=== PATIENT | female | born 1960 | race Caucasian/White ===

== ENCOUNTER → 2017-01-09 | Outpatient (CLI) | payer BC | END | disposition home or self-care (01) | LOC: LAB.O 09:39 | PROVIDERS: ATTEND Nurse Practitioner Family | DX: I10 Essential (primary) hypertension (principal); E11.9 Type 2 diabetes mellitus without complications ==

== ENCOUNTER 2017-02-23 22:14 | Emergency (ER) | payer BC ==
[2017-02-23 22:25] VITALS: TEMP 98.9; O2SAT 98
[2017-02-23] MEDS ORDERED: HYDROcodone 5MG/APAP 325MG 1 EA TAB PO ONE (22:33)
[2017-02-23] MEDS ORDERED: HYDROCOD/APAP 5/325 (ER DISP) #3 TAB PO ONE (22:33)
[2017-02-23] MEDS ORDERED: diazePAM 2 MG TAB PO ONE (22:33)
[2017-02-23] MEDS ORDERED: SODIUM CHLORIDE 0.9% 1000ML 1,000 ML IVS ONE (22:33)
[2017-02-23] MEDS ORDERED: PROMETHAZINE HCL INJ 25 MG in SODIUM CHLORIDE 0.9% 50ML 50 ML IVPB ONE (22:33)
[2017-02-23] MEDS ORDERED: SODIUM CHLORIDE 0.9% 50ML 50 ML ONE (22:50)
[2017-02-23] MEDS ORDERED: PROMETHAZINE HCL INJ 25 MG/ML VIAL ONE (22:50)
[2017-02-23] MEDS ORDERED: POTASSIUM CHLORIDE ELIXIR 20 MEQ/15 ML UD PO ONE (22:54)
--- NOTE | 2017-02-23 23:29 | CT ---
EXAM: Head CLINICAL INDICATION: 57-year-old female with acute headache. On blood thinners. COMPARISON: None. TECHNIQUE: CT brain without contrast. This exam was performed according to our departmental dose optimization program which includes use of automated exposure control, adjustment of the mA and/or kV according to patient size and/or use of iterative reconstruction technique. FINDINGS: The ventricles, sulci, and cisterns are within normal limits. The kendall-white matter differentiation is preserved. There is no mass effect, midline shift, intra- or extra-axial fluid collection/acute hemorrhage. The osseous structures are unremarkable. The paranasal sinuses and mastoid air cells are clear. IMPRESSION: No acute intracranial abnormalities. Electronically signed by: Carlota Varner MD 02/23/2017 11:27 PM CDT Workstation: [id number]
--- NOTE | 2017-02-23 23:37 | ED.PDOC ---
History of Present Illness - General Chief Complaint: GI Problem Stated Complaint: headache, vomiting Time Seen by Provider: 02/23/17 22:26 Source: patient Exam Limitations: no limitations - History of Present Illness Initial Comments: The patient is a 57-year-old female presenting to the emergency room secondary to a significant headache. The patient has had lancinating pains on both sides of her head intermittently for the last couple of days. Today the pains were more prolonged. The headache did not want to go away. She has become a little nauseated. Her blood sugars have also been a little bit elevated. No focal neurological changes. 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 She does also take a water pill. She did have a history of migraines but her last migraine was approximately 9 years ago. Timing/Duration: unsure Severity: moderate Improving Factors: nothing Worsening Factors: nothing Associated Symptoms: headaches Allergies/Adverse Reactions: Allergies Metformin Allergy (Verified 02/23/17 22:25) Home Medications: Ambulatory Orders Acyclovir [Zovirax] 400 mg PO 02/23/17 Aspirin [(None)] 325 mg PO QD 02/23/17 Atenolol [Tenormin] 50 mg PO 02/23/17 Cetirizine HCl [Zyrtec Allergy] 10 mg PO 02/23/17 Citalopram Hydrobromide 02/23/17 Clopidogrel Bisulfate [Clopidogrel] 300 mg PO 02/23/17 Gabapentin [Neurontin] 300 mg PO 02/23/17 Glipizide-Metformin HCl [Glipizide/Metformin HCl 5-500 mg] 1 tab PO 02/23/17 Insulin Glargine [Lantus Solostar] 100 unit SC 02/23/17 Isosorbide Mononitrate [Isosorbide Mononitrate ER] 30 mg PO 02/23/17 Losartan Potassium & Hydrochlo [Losartan Potassium/Hydroc 50-12.5 mg] 1 tab PO 02/23/17 Novolog 02/23/17 Rosuvastatin Calcium [Crestor] 20 mg PO 02/23/17 Review of Systems - Review of Systems Constitutional: States: malaise EENTM: States: no symptoms reported Respiratory: States: no symptoms reported Cardiology: States: no symptoms reported Gastrointestinal/Abdominal: States: no symptoms reported Genitourinary: States: no symptoms reported Musculoskeletal: States: no symptoms reported Skin: States: no symptoms reported Neurological: States: headache Endocrine: States: no symptoms reported Hematologic/Lymphatic: States: no symptoms reported All other Systems: No Change from Baseline Past Medical History (General) - Vaccination History Immunizations Up to Date: Yes - Social History Hx Tobacco Use: No - Activities of Daily Living Hospice Agency (if applicable):: None - Female History Patient is a Female of Child Bearing Age (10 -59 yrs old): Yes Physical Exam - Physical Exam General Appearance: Alert Eye Exam: bilateral normal Ears, Nose, Throat: hearing grossly normal, normal ENT inspection, normal pharynx Neck: non-tender, full range of motion, supple, normal inspection Respiratory: chest non-tender, lungs clear, normal breath sounds, no respiratory distress, no accessory muscle use Cardiovascular/Chest: normal peripheral pulses, regular rate, rhythm, no edema Peripheral Pulses: radial,right: 2+, radial,left: 2+, dorsalis pedis,right: 2+, dorsalis pedis,left: 2+ Gastrointestinal/Abdominal: non tender, soft Rectal Exam: deferred Extremity: normal range of motion, non-tender, normal inspection, no pedal edema , normal capillary refill 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 CT scan shows no acute pathology. The patient has received medications here which have helped her symptomatically. Source of the atypical headache is not entirely certain. There may be some component of occipital neuralgia. She was mildly dehydrated and has mildly low potassium level which also may contribute. No focal neurological deficits. The patient will be allowed to go home. She needs to follow up with her primary care doctor early next week. She also needs to control her blood sugars a little better. ER warnings were given for any significant worsening. - Results/Orders Results/Orders: Laboratory Tests 02/23/17 02/23/17 02/23/17 22:32 22:32 22:32 WBC 8.0 RBC 4.19 L Hgb 12.4 Hct 36.5 MCV 87.0 MCH 29.5 MCHC 33.9 RDW 14.5 Plt Count 284 MPV 8.5 Absolute Neuts (auto) 4.90 Absolute Lymphs (auto) 2.40 Absolute Monos (auto) 0.60 Absolute Eos (auto) 0.10 Absolute Basos (auto) 0.00 Neutrophils % 61.0 Lymphocytes % 30.2 Monocytes % 7.0 Eosinophils % 1.2 Basophils % 0.6 PT 10.0 INR 0.880 PTT (SP) 26.2 Sodium 139 Potassium 3.5 L Chloride 102 Carbon Dioxide 26 Anion Gap 14.5 BUN 27 H Creatinine 0.88 BUN/Creatinine Ratio 30.7 H Random Glucose 200 H Serum Osmolality 288.3 Calcium 9.2 Magnesium 1.8 Total Bilirubin 0.4 AST 23 ALT 26 Alkaline Phosphatase 69 Serum Total Protein 6.7 Albumin 3.9 Globulin 2.8 Albumin/Globulin Ratio 1.4 CT scan of the head shows no definitive acute pathology. Departure - Departure Clinical Impression: Headache Qualifiers: Headache type: unspecified Headache chronicity pattern: acute headache Intractability: not intractable Qualified Code(s): R51 - Headache Disposition: Discharge to Home or Self Care Condition: Fair Departure Forms: ED Discharge - Pt. Copy, Patient Portal Self Enrollment Instructions: DI for Headache Diet: diabetic diet Activity: increase activity as tolerated Home Medications: Ambulatory Orders Acyclovir [Zovirax] 400 mg PO 02/23/17 Aspirin [(None)] 325 mg PO QD 02/23/17 Atenolol [Tenormin] 50 mg PO 02/23/17 Cetirizine HCl [Zyrtec Allergy] 10 mg PO 02/23/17 Citalopram Hydrobromide 02/23/17 Clopidogrel Bisulfate [Clopidogrel] 300 mg PO 02/23/17 Gabapentin [Neurontin] 300 mg PO 02/23/17 Glipizide-Metformin HCl [Glipizide/Metformin HCl 5-500 mg] 1 tab PO 02/23/17 Insulin Glargine [Lantus Solostar] 100 unit SC 02/23/17 Isosorbide Mononitrate [Isosorbide Mononitrate ER] 30 mg PO 02/23/17 Losartan Potassium & Hydrochlo [Losartan Potassium/Hydroc 50-12.5 mg] 1 tab PO 02/23/17 Novolog 02/23/17 Rosuvastatin Calcium [Crestor] 20 mg PO 02/23/17 Additional Instructions: the patient is a 57-year-old female presenting to the emergency room secondary to severe headache. CT scan shows no acute pathology. The patient has received medications here which have helped her symptomatically. Source of the atypical headache is not entirely certain. There may be some component of occipital neuralgia. She was mildly dehydrated and has mildly low potassium level which also may contribute. No focal neurological deficits. The patient will be allowed to go home. She needs to follow up with her primary care doctor early next week. She also needs to control her blood sugars a little better. ER warnings were given for any significant worsening.
[2017-02-24 00:32] VITALS: BP 140/87
== END 2017-02-24 00:30 | disposition home or self-care (01) ==
LOC: ER 22:14
DX: R51 Headache (principal); Z88.8 Allergy status to other drugs, medicaments and biological substances; Z79.82 Long term (current) use of aspirin; Z79.899 Other long term (current) drug therapy; Z79.4 Long term (current) use of insulin

== ENCOUNTER 2017-05-09 05:44 | Day surgery (SDC) | payer BC ==
[2017-05-09] MEDS ORDERED: LACTATED RINGERS 1,000 ML ONE (05:54)
[2017-05-09] MEDS ORDERED: PROPOFOL 200 MG/20 ML VIAL IV ONE (09:00)
[2017-05-09] MEDS ORDERED: GLYCOPYRROLATE 0.2 MG/ML VIAL ONE (09:00)
[2017-05-09 09:23] VITALS: O2SAT 98
--- NOTE | 2017-05-09 10:04 | OP ---
DATE OF PROCEDURE: 05/09/17 PREOPERATIVE DIAGNOSIS: 1. Positive Cologuard. 2. The patient is a [facility] patient. POSTOPERATIVE DIAGNOSIS: 1. Colonic polyps. 2. Diverticulosis. PROCEDURE: 1. Colonoscopy plus polypectomy. SURGEON: Angel Pelaez MD. COMPLICATIONS: None apparent. BLOOD LOSS: None. MEDICATIONS: Monitored anesthesia care. DESCRIPTION OF PROCEDURE: Informed consent was obtained prior to sedation. The preprocedure cardiopulmonary assessment was satisfactory. The patient was placed in the left lateral decubitus position and was sedated. A digital rectal exam was unremarkable. The tip of the Olympus colonoscope was inserted in the rectum and guided over to the cecum. The cecum was identified by locating the ileocecal valve and appendiceal orifice. Photographs of those two structures were obtained. Prep was good. The mucosa of the cecum, ascending colon, hepatic flexure, transverse colon, splenic flexure, descending colon and sigmoid colon was closely examined. Direct and retroflexed views of the rectum were obtained. The patient had multiple colonic polyps. There were 3 sessile polyps in the transverse colon, all 6 mm or less in size. All 3 were removed with a hot snare and recovered. There were 2 sigmoid polyps, each less than 5 mm in size and removed with a hot snare and recovered. Finally, there were 2 rectal polyps, one was about 5 mm in size and the second was about 2 mm in size. The larger one was removed with a hot snare and the smaller one was removed with a cold snare. Both of them were recovered. The patient had multiple sigmoid diverticula. Otherwise, the colonoscopy was unremarkable. RECOMMENDATIONS: 1. Await polyp pathology. 2. Resume her Plavix in about 3 days. 3. Call our office in one week for polyp results. #[id number] cc: Ray BRAND
[2017-05-09 10:11] VITALS: BP 134/70; TEMP 97.6
== END 2017-05-09 09:45 | disposition home or self-care (01) ==
LOC: AMB 05:44
PROVIDERS: ATTEND Internal Medicine Gastroenterology
DX: R19.5 Other fecal abnormalities (principal); D12.3 Benign neoplasm of transverse colon; D12.5 Benign neoplasm of sigmoid colon; K62.1 Rectal polyp; K57.30 Diverticulosis of large intestine without perforation or abscess without bleeding; I25.10 Atherosclerotic heart disease of native coronary artery without angina pectoris; F32.9 Major depressive disorder, single episode, unspecified; E11.9 Type 2 diabetes mellitus without complications; E78.5 Hyperlipidemia, unspecified; I25.2 Old myocardial infarction; K21.9 Gastro-esophageal reflux disease without esophagitis; Z95.5 Presence of coronary angioplasty implant and graft; Z85.43 Personal history of malignant neoplasm of ovary; Z87.891 Personal history of nicotine dependence; Z88.8 Allergy status to other drugs, medicaments and biological substances; Z79.82 Long term (current) use of aspirin; Z79.4 Long term (current) use of insulin; Z79.02 Long term (current) use of antithrombotics/antiplatelets; Z79.899 Other long term (current) drug therapy
CPT/HCPCS: 00810; 45385; 82948; J7120

== ENCOUNTER → 2018-01-30 | Outpatient (CLI) | payer BC ==
--- NOTE | 2018-01-31 16:24 | MAM ---
EXAM DESCRIPTION: 3D Screening BILATERAL : Digital Mammography. CLINICAL HISTORY: 58 years Female SCREENING . No complaints. No family history of breast cancer. Remote family history of ovarian cancer. Childbirth. Postmenopausal. HRT 5 or more years ago.. COMPARISON: Baseline study at this facility.. No prior reports available. TECHNIQUE: Bilateral CC and MLO projection full-field images, 3-D tomosynthesis digital mammographic technique. CAD not utilized. FINDINGS: The breast parenchymal density pattern is: Scattered areas of fibroglandular density. No skin thickening or nipple retraction. Bilateral axillary lymph nodes. Bilateral Type solitary microcalcifications. Bilateral intramammary lymph nodes. No focal, stellate mass or density, focal asymmetry , and no suspicious microcalcifications bilaterally. IMPRESSION: BI-RADS CATEGORY: 2 - BENIGN FINDINGS. FOLLOW UP: Routine digital bilateral screening, one year interval from January 2018. Written communication explaining the IMPRESSION and follow-up, will be mailed to the patient and referring health care provider. According to the [employer], yearly mammograms are recommended starting at age 40 and continuing as long as a woman is in good health. Any breast change noted on a breast self-exam should be reported promptly to the patient's healthcare provider. Breast MRI is recommended for women with an approximately 20-25% or greater lifetime risk of breast cancer, including women with a strong family history of breast or ovarian cancer and women who have been treated for Hodgkin's disease. A negative mammographic report should not delay tissue diagnosis in patients with significant clinical history or physical findings. Extremely dense breast tissue limits the sensitivity of digital mammography. Electronically signed by: Winston Bro MD 01/31/2018 4:23 PM CDT
== END ==
LOC: MAMMO 08:00
PROVIDERS: ATTEND Nurse Practitioner Family
DX: Z12.31 Encounter for screening mammogram for malignant neoplasm of breast (principal)

== ENCOUNTER 2018-03-08 12:17 | Emergency (ER) | payer BC, OTHER ==
[2018-03-08] MEDS ORDERED: MORPHINE SULFATE INJ 10 MG/ML VIAL ONE (12:25)
[2018-03-08] MEDS ORDERED: MORPHINE SULFATE INJ 10 MG/ML VIAL IV ONE (12:26)
[2018-03-08] MEDS ORDERED: ATORVASTATIN 20 MG TAB PO ONE (12:27)
[2018-03-08] MEDS ORDERED: METOPROLOL TARTRATE 25 MG TAB PO ONE (12:27)
--- NOTE | 2018-03-08 13:23 | RAD ---
EXAM DESCRIPTION: Chest,1 View CLINICAL HISTORY: chest pain COMPARISON: None. IMPRESSION: Single AP portable upright view of the chest shows cardiac silhouette and pulmonary vasculature to be within normal limits. Lungs are normally aerated and clear. 4 mm calcified pulmonary nodule in the right upper lobe is seen. This suggests old granulomatous disease. No obvious pleural effusion or pneumothorax is seen. Electronically signed by: Alexander Torres MD 03/08/2018 1:22 PM CDT
--- NOTE | 2018-03-08 13:35 | ED.PDOC ---
History of Present Illness - General Chief Complaint: Chest Pain/DC Stated Complaint: Chest pressure, N/V Time Seen by Provider: 03/08/18 12:20 Source: patient Exam Limitations: no limitations - History of Present Illness Initial Comments: patient comes in today for severe left-sided and substernal chest pain that radiates to her left jaw and neck. Patient states she was outside watching her grandson in their swimming pool when the pain started. She took a nitroglycerin at home but the pain did not resolve and she called EMS. In the past she has had to have 2 stents and this pain is very similar to her angina in her past myocardial infarction. Patient had some nausea and emesis as well as diaphoresis on arrival of the chest pain. EMS district to 2 more nitroglycerin as well as 4 baby aspirin. On arrival patient continues to have chest pain an 8 out of 10. Morphine and subsequent Lovenox as well as Lipitor has seen her pain down to 1-2 out of 10 with resolution of other symptoms. Patient states she had a stress test performed on Sunday but does not have the results yet. Patient has a past medical history of diabetes, coronary artery disease, hyperlipidemia, hypertension, and optical shingles. Timing/Duration: 1/2 hour Severity/Quality: severe, pressure Location: substernal Chest Pain Radiation: jaw, neck Activities at Onset: rest Prior Chest Pain/Cardiac Workup: cardiac cath Nitro Today/Relief: 0.4 mg x 3, provided by EMS, provided by ED, mild relief Aspirin Treatment Today: 81 mg x 4, provided by EMS Associated Symptoms: diaphoresis, nausea/vomiting Allergies/Adverse Reactions: Allergies Metformin Allergy (Intermediate, Verified 03/08/18 12:44) Other Causes severe migraines Home Medications: Ambulatory Orders Acyclovir [Zovirax] 400 mg PO BID 02/23/17 Aspirin [(None)] 81 mg PO QD 02/23/17 Atenolol [Tenormin] 50 mg PO DAILY 02/23/17 Gabapentin [Neurontin] 300 mg PO BEDTIME 02/23/17 Insulin Glargine [Lantus Solostar] 100 unit SC DAILY 02/23/17 Isosorbide Mononitrate [Isosorbide Mononitrate ER] 30 mg PO DAILY 02/23/17 Losartan Potassium & Hydrochlo [Losartan Potassium/Hydroc 50-12.5 mg] 1 tab PO DAILY 02/23/17 Rosuvastatin Calcium [Crestor] 20 mg PO BEDTIME 02/23/17 Citalopram Hydrobromide [Celexa] 40 mg PO DAILY 05/04/17 Clopidogrel Bisulfate [Plavix] 75 mg PO DAILY 05/04/17 Glipizide [Glipizide ER] 5 mg PO TID 05/04/17 Liraglutide [Victoza] 12 mg SC DAILY 05/04/17 Review of Systems - Review of Systems Constitutional: States: diaphoresis. Denies: chills, fever, weakness EENTM: States: no symptoms reported. Denies: eye pain, ear pain, throat pain Respiratory: States: no symptoms reported. Denies: cough, orthopnea, short of breath, wheezing Cardiology: States: see HPI, chest pain Gastrointestinal/Abdominal: States: vomiting. Denies: abdominal pain, constipation, diarrhea Genitourinary: States: no symptoms reported Musculoskeletal: States: no symptoms reported Skin: States: no symptoms reported Neurological: States: no symptoms reported Past Medical History (General) - Patient Medical History Hx Stroke: No Hx Cardiac Disorders: Yes - high cholesterol Hx Congestive Heart Failure: No Hx Hypertension: Yes Hx Diabetes: Yes Hx Gastroesophageal Reflux: Yes Hx Cancer: Yes - Ovarian Surgical History: Hysterectomy, other - Vaccination History Hx Influenza Vaccination: Yes - 2016 Hx Pneumococcal Vaccination: Yes - 2014 - Social History Hx Tobacco Use: Yes - Quit 2010 Family Medical History - Family History Mother Family History: Unknown Living Status: Still Living Hx Family Diabetes: Yes Physical Exam - Physical Exam General Appearance: Alert, Anxious, Ill Appearing Eyes, Ears, Nose, Throat Exam: PERRL/EOMI, normal ENT inspection, TMs normal, pharynx normal Neck: non-tender, full range of motion, supple, normal inspection Respiratory: chest non-tender, lungs clear, normal breath sounds, no respiratory distress, no accessory muscle use Cardiovascular/Chest: normal peripheral pulses, regular rate, rhythm, no edema, no gallop, no JVD, no murmur Peripheral Pulses: radial,right: 2+, radial,left: 2+, posterior tibialis,right: 2+, posterior tibialis,left: 2+ Gastrointestinal/Abdominal: normal bowel sounds, non tender, soft, no organomegaly 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, alert, oriented x 3 Progress - Progress Progress: 03/08/18 13:38 Patient Name: NICANOR POWER Gender: Female Date of : 1960 Referring Physician: STANISLAW KOEHLER 03/08/18 12:30 CARDIAC PANEL,ER Stat EKG STAT Laboratory Results WBC 6.4 K/mm3 (4.8-10.8) 03/08/18 12:30 RBC 3.57 M/mm3 (4.20-5.40) L 03/08/18 12:30 Hgb 10.5 gm/dL (12.0-16.0) L 03/08/18 12:30 Hct 30.6 % (36.0-47.0) L 03/08/18 12:30 MCV 85.9 fl (81.0-99.0) 03/08/18 12:30 MCH 29.4 pg (27.0-31.0) 03/08/18 12:30 MCHC 34.3 g/dL (33.0-37.0) 03/08/18 12:30 RDW 14.3 % (11.5-14.5) 03/08/18 12:30 Plt Count 428 K/mm3 (130-400) H 03/08/18 12:30 MPV 7.8 fl (7.40-10.4) 03/08/18 12:30 Absolute Neuts (auto) 3.60 K/uL (1.8-6.8) 03/08/18 12:30 Absolute Lymphs (auto) 2.00 K/uL (1.0-3.4) 03/08/18 12:30 Absolute Monos (auto) 0.40 K/uL (0.2-0.8) 03/08/18 12:30 Absolute Eos (auto) 0.30 K/uL (0.0-0.4) 03/08/18 12:30 Absolute Basos (auto) 0.10 K/uL (0.0-0.1) 03/08/18 12:30 Neutrophils % 56.1 % (42.0-78.0) 03/08/18 12:30 Lymphocytes % 30.9 % (20.0-50.0) 03/08/18 12:30 Monocytes % 6.7 % (2.0-9.0) 03/08/18 12:30 Eosinophils % 5.1 % (1.0-5.0) H 03/08/18 12:30 Basophils % 1.2 % (0.0-2.0) 03/08/18 12:30 Sodium 136 mmol/L (135-145) 03/08/18 12:30 Potassium 4.9 mmol/L (3.6-5.0) 03/08/18 12:30 Chloride 101 mmol/L (101-111) 03/08/18 12:30 Carbon Dioxide 24 mmol/L (21-31) 03/08/18 12:30 Anion Gap 15.9 (12-18) 03/08/18 12:30 BUN 32 mg/dL (7-18) H 03/08/18 12:30 Creatinine 1.88 mg/dL (0.6-1.3) H 03/08/18 12:30 BUN/Creatinine Ratio 17.0 (10-20) 03/08/18 12:30 Random Glucose 178 mg/dL (70-105) H 03/08/18 12:30 Serum Osmolality 283.3 mOsm/L (275-295) 03/08/18 12:30 Calcium 9.7 mg/dL (8.4-10.2) 03/08/18 12:30 Magnesium 1.9 mg/dL (1.8-2.5) 03/08/18 12:30 Creatine Kinase 94 IU/L (26-140) 03/08/18 12:30 CK-MB (CK-2) 2.3 ng/mL (0.0-4.4) 03/08/18 12:30 CK-MB (CK-2) % Not Reportable 03/08/18 12:30 Troponin I < 0.02 ng/mL (0.01-0.05) 03/08/18 12:30 Organization: [facility] Accession Number: [id number] Requested Date: March 08, 2018 12:27 Report Status: Final Requested Procedure: 1 Procedure Description: Chest,1 View Modality: CR Findings Reporting MD: Alexander Torres Fellow MD: Not available Dictation Time: Sterilization Specialist: Not available Artificial Flowers Starcher Date: EXAM DESCRIPTION: Chest,1 View CLINICAL HISTORY: chest pain COMPARISON: None. IMPRESSION: Single AP portable upright view of the chest shows cardiac silhouette and pulmonary vasculature to be within normal limits. Lungs are normally aerated and clear. 4 mm calcified pulmonary nodule in the right upper lobe is seen. This suggests old granulomatous disease. No obvious pleural effusion or pneumothorax is seen 03/08/18 13:41 03/08/18 14:06 spoke with her appian bpm developer Dr. Hough at 1404 and he does want her transferred to [facility]. We will call and arrange transfer. 03/08/18 14:20 [facility] called back and [facility] consultant hospitalist requests we do ER to ER transfer rather than to PCU as previously requested by Dr. Hough - EKG/XRAY/CT EKG: Sinus, no ST T wave changes Comments: HR 74 with normal axis and possible anterior infart age indeterminate Departure - Departure Clinical Impression: Acute coronary syndrome Disposition: Transfer to Hospital Condition: Fair Departure Forms: ED Discharge - Pt. Copy, Patient Portal Self Enrollment Instructions: DI for Chest Pain Referrals: Roly Conde MD [Primary Care Provider] - 1-2 Weeks Home Medications: Ambulatory Orders Acyclovir [Zovirax] 400 mg PO BID 02/23/17 Aspirin [(None)] 81 mg PO QD 02/23/17 Atenolol [Tenormin] 50 mg PO DAILY 02/23/17 Gabapentin [Neurontin] 300 mg PO BEDTIME 02/23/17 Insulin Glargine [Lantus Solostar] 100 unit SC DAILY 02/23/17 Isosorbide Mononitrate [Isosorbide Mononitrate ER] 30 mg PO DAILY 02/23/17 Losartan Potassium & Hydrochlo [Losartan Potassium/Hydroc 50-12.5 mg] 1 tab PO DAILY 02/23/17 Rosuvastatin Calcium [Crestor] 20 mg PO BEDTIME 02/23/17 Citalopram Hydrobromide [Celexa] 40 mg PO DAILY 05/04/17 Clopidogrel Bisulfate [Plavix] 75 mg PO DAILY 05/04/17 Glipizide [Glipizide ER] 5 mg PO TID 05/04/17 Liraglutide [Victoza] 12 mg SC DAILY 05/04/17 Transfer to Outside Facility - Transfer Information Accepting Facility: [facility] Reason for Transfer: specialized care not available
[2018-03-08] MEDS ORDERED: ENOXAPARIN SODIUM 100 MG/ML SYG SUBCU ONE (13:53)
[2018-03-08] MEDS ORDERED: NITROGLYCERIN 0.1 MG/HR PATCH TD ONE (14:03)
[2018-03-08 15:13] VITALS: BP 132/55; TEMP 98.4; O2SAT 98
== END 2018-03-08 15:45 | disposition short-term general hospital (02) ==
LOC: ER 12:17
DX: I24.9 Acute ischemic heart disease, unspecified (principal); E78.00 Pure hypercholesterolemia, unspecified; I10 Essential (primary) hypertension; E11.9 Type 2 diabetes mellitus without complications; K21.9 Gastro-esophageal reflux disease without esophagitis; Z85.43 Personal history of malignant neoplasm of ovary; Z79.82 Long term (current) use of aspirin; Z79.4 Long term (current) use of insulin; Z79.899 Other long term (current) drug therapy; Z88.8 Allergy status to other drugs, medicaments and biological substances
CPT/HCPCS: 36415; 71045; 80048; 82550; 82553; 84484; 85025; 85610; 85730; 93005; J1650; J2270

== ENCOUNTER → 2018-04-15 | Outpatient (CLI) | payer BC, OTHER ==
--- NOTE | 2018-04-15 14:55 | US ---
EXAM DESCRIPTION: Renal CLINICAL HISTORY: 58 years Female, CHRONIC KIDNEY DISEASE COMPARISON: None. FINDINGS: Kidneys normal in size, shape, echotexture. No hydronephrosis, mass, calculus. Right kidney 9.5 x 5.8 x 4.7 cm. Left kidney 10.9 x 5.2 x 5.2 cm. IMPRESSION: Normal study Electronically signed by: Catrachtio Portillo MD 04/15/2018 1:13 PM CDT
== END ==
LOC: US 08:14
PROVIDERS: ATTEND Internal Medicine Nephrology
DX: N18.4 Chronic kidney disease, stage 4 (severe) (principal)

== ENCOUNTER 2018-05-16 03:43 | Emergency (ER) | payer BC, OTHER ==
[2018-05-16] MEDS ORDERED: KETOROLAC TROMETHAMINE INJ 60 MG/2 ML VIAL IM ONE (03:59)
[2018-05-16] MEDS ORDERED: diazePAM 5 MG TAB PO ONE (03:59)
[2018-05-16] MEDS ORDERED: HYDROcodone 7.5MG/APAP 325MG 1 EA TAB PO ONE (05:29)
--- NOTE | 2018-05-16 06:27 | ED.PDOC ---
History of Present Illness - General Chief Complaint: Back Pain or Injury Time Seen by Provider: 05/16/18 03:44 Source: patient Exam Limitations: no limitations - History of Present Illness Initial Comments: the patient is a 58-year-old female presenting to the emergency room secondary to low back pain. The patient discovered about a month ago with an MRI that she does have a herniated disc. She does have intermittent sciatica. More symptomatic however is the paraspinal muscle spasm around that level. No incontinence. No loss of sensation. No weakness. She is in the middle of a workup with a specialist for this pain. No recent injury. gradual increasing pain. Timing/Duration: unsure Severity: severe Improving Factors: nothing Worsening Factors: movement Associated Symptoms: denies symptoms Allergies/Adverse Reactions: Allergies Metformin Allergy (Intermediate, Verified 03/08/18 12:44) Other Causes severe migraines Home Medications: Ambulatory Orders Acyclovir [Zovirax] 400 mg PO BID 02/23/17 Aspirin [(None)] 81 mg PO QD 02/23/17 Atenolol [Tenormin] 50 mg PO DAILY 02/23/17 Gabapentin [Neurontin] 300 mg PO BEDTIME 02/23/17 Insulin Glargine [Lantus Solostar] 100 unit SC DAILY 02/23/17 Isosorbide Mononitrate [Isosorbide Mononitrate ER] 30 mg PO DAILY 02/23/17 Losartan Potassium & Hydrochlo [Losartan Potassium/Hydroc 50-12.5 mg] 1 tab PO DAILY 02/23/17 Rosuvastatin Calcium [Crestor] 20 mg PO BEDTIME 02/23/17 Citalopram Hydrobromide [Celexa] 40 mg PO DAILY 05/04/17 Clopidogrel Bisulfate [Plavix] 75 mg PO DAILY 05/04/17 Glipizide [Glipizide ER] 5 mg PO TID 05/04/17 Liraglutide [Victoza] 12 mg SC DAILY 05/04/17 Tsylaoewpboun-Btrp-Hexkurhxqp [Fioricet] 1 ea PO Q8H PRN #21 tab 05/16/18 Cyclobenzaprine HCl [Flexeril] 5 mg PO TID PRN #30 tab 05/16/18 Review of Systems - Review of Systems Constitutional: States: no symptoms reported EENTM: States: no symptoms reported Respiratory: States: no symptoms reported Cardiology: States: no symptoms reported Gastrointestinal/Abdominal: States: no symptoms reported Genitourinary: States: no symptoms reported Musculoskeletal: States: see HPI, back pain Skin: States: no symptoms reported Neurological: States: anxiety Endocrine: States: no symptoms reported All other Systems: No Change from Baseline Past Medical History (General) - Patient Medical History Hx Stroke: No Hx Cardiac Disorders: Yes - stents Hx Congestive Heart Failure: No Hx Hypertension: Yes Hx Diabetes: Yes Hx Gastroesophageal Reflux: Yes Hx Cancer: Yes - Ovarian Surgical History: other - Vaccination History Hx Influenza Vaccination: Yes - 2016 Hx Pneumococcal Vaccination: Yes - 2014 - Social History Hx Tobacco Use: Yes - Quit 2010 Hx Alcohol Use: No Family Medical History - Family History Mother Family History: Unknown Living Status: Still Living Hx Family Diabetes: Yes Physical Exam - Physical Exam General Appearance: Alert, Obvious distress - patient is obviously hurting and is essentially having a panic attack upon arrival Eye Exam: bilateral normal Ears, Nose, Throat: hearing grossly normal, normal pharynx Neck: full range of motion Respiratory: lungs clear, normal breath sounds, no respiratory distress, no accessory muscle use Cardiovascular/Chest: normal peripheral pulses, no edema, other - regular rate Peripheral Pulses: radial,right: 2+, radial,left: 2+, dorsalis pedis,right: 2+, dorsalis pedis,left: 2+ Gastrointestinal/Abdominal: soft - morbidly obese Rectal Exam: deferred Back Exam: CVA tenderness (R), CVA tenderness (L), muscle spasm Extremity: non-tender, no pedal edema, no calf tenderness, normal capillary refill 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, alert, oriented x 3, sensory deficit - chronic, other - anxiety Skin Exam: normal color Comments: Vital Signs - 24 hr 05/16/18 05/16/18 05/16/18 03:51 04:36 05:00 Temperature 97.1 F L 97.1 F L Pulse Rate [ 89 79 79 left] Respiratory 22 22 18 Rate Blood Pressure 124/71 103/72 97/51 [left] O2 Sat by Pulse 97 97 95 Oximetry 05/16/18 05/16/18 05:46 06:00 Temperature 97.1 F L Pulse Rate [ 76 90 left] Respiratory 18 18 Rate Blood Pressure 104/71 108/76 [left] O2 Sat by Pulse 95 96 Oximetry Progress - Progress Progress: 05/16/18 06:28 the patient is a 58-year-old female presenting to the emergency room with low back pain related to a known herniated disks that were diagnosed with MRI in the recent past. She needs to keep follow-up for targeted treatment of this. She should also work with physical therapy to help strengthen muscles in front of the spine and she can do exercises by herself including rowing swimming and cycling that can help reduce this problem. The patient will be written for Fioricet for as needed use. Topical heat also help. She does need to do stretching to help reduce muscle spasm. The patient has responded well to a muscle relaxer and pain pill here along with a dose of Toradol. She can also take Aleve 2 tablets twice a day with food as needed to help reduce inflammation. Steroids are being avoided secondary to diabetes. She needs to keep herself well-hydrated. keep follow-up with primary care doctor within the next week. - EKG/XRAY/CT CT Ordered: No CT Interpretation Call Back: No Departure - Departure Clinical Impression: Degeneration of lumbosacral intervertebral disc Sciatica Qualifiers: Laterality: bilateral Qualified Code(s): M54.31 - Sciatica, right side; M54.32 - Sciatica, left side; M54.32 - Sciatica, left side Disposition: Discharge to Home or Self Care Condition: Fair Departure Forms: ED Discharge - Pt. Copy, Patient Portal Self Enrollment Instructions: DI for Back Pain With Sciatica Diet: diabetic diet Activity: increase activity as tolerated Referrals: Roly Conde MD [Primary Care Provider] - 1-5 Days Prescriptions: Bfuymcoyyfach-Alnz-Yrqejdvsar [Fioricet] 1 ea PO Q8H PRN #21 tab PRN Reason: Pain Cyclobenzaprine HCl [Flexeril] 5 mg PO TID PRN #30 tab PRN Reason: Muscle Spasms Home Medications: Ambulatory Orders Acyclovir [Zovirax] 400 mg PO BID 02/23/17 Aspirin [(None)] 81 mg PO QD 02/23/17 Atenolol [Tenormin] 50 mg PO DAILY 02/23/17 Gabapentin [Neurontin] 300 mg PO BEDTIME 02/23/17 Insulin Glargine [Lantus Solostar] 100 unit SC DAILY 02/23/17 Isosorbide Mononitrate [Isosorbide Mononitrate ER] 30 mg PO DAILY 02/23/17 Losartan Potassium & Hydrochlo [Losartan Potassium/Hydroc 50-12.5 mg] 1 tab PO DAILY 02/23/17 Rosuvastatin Calcium [Crestor] 20 mg PO BEDTIME 02/23/17 Citalopram Hydrobromide [Celexa] 40 mg PO DAILY 05/04/17 Clopidogrel Bisulfate [Plavix] 75 mg PO DAILY 05/04/17 Glipizide [Glipizide ER] 5 mg PO TID 05/04/17 Liraglutide [Victoza] 12 mg SC DAILY 05/04/17 Dozxhnaxddnjn-Pnjp-Abvyswpuyg [Fioricet] 1 ea PO Q8H PRN #21 tab 05/16/18 Cyclobenzaprine HCl [Flexeril] 5 mg PO TID PRN #30 tab 05/16/18 Additional Instructions: the patient is a 58-year-old female presenting to the emergency room with low back pain related to a known herniated disks that were diagnosed with MRI in the recent past. She needs to keep follow-up for targeted treatment of this. She should also work with physical therapy to help strengthen muscles in front of the spine and she can do exercises by herself including rowing swimming and cycling that can help reduce this problem. The patient will be written for Fioricet for as needed use. Topical heat also help. She does need to do stretching to help reduce muscle spasm. The patient has responded well to a muscle relaxer and pain pill here along with a dose of Toradol. She can also take Aleve 2 tablets twice a day with food as needed to help reduce inflammation. Steroids are being avoided secondary to diabetes. She needs to keep herself well-hydrated. keep follow-up with primary care doctor within the next week.
[2018-05-16 06:43] VITALS: BP 110/71; TEMP 97.2; O2SAT 97
== END 2018-05-16 06:43 | disposition home or self-care (01) ==
LOC: ER 03:43
DX: M51.17 Intervertebral disc disorders with radiculopathy, lumbosacral region (principal); E11.9 Type 2 diabetes mellitus without complications; I10 Essential (primary) hypertension; K21.9 Gastro-esophageal reflux disease without esophagitis; Z95.5 Presence of coronary angioplasty implant and graft; Z87.891 Personal history of nicotine dependence; Z85.43 Personal history of malignant neoplasm of ovary; Z79.899 Other long term (current) drug therapy; Z79.4 Long term (current) use of insulin; Z79.82 Long term (current) use of aspirin

== ENCOUNTER → 2018-05-17 | Outpatient (CLI) | payer BC, OTHER ==
--- NOTE | 2018-05-17 15:05 | MRI ---
EXAM DESCRIPTION: Lumbar Spine w/o Contrast : Magnetic Resonance Imaging. CLINICAL HISTORY: RADICULOPATHY COMPARISON: None. TECHNIQUE: Multiplanar, multiple standard sequences, non contrast MRI, lumbar spine. FINDINGS: L5-S1: Moderate disc space loss. Modic type II endplate reactive changes diffusely. Grade 1 retrolisthesis. Posterior midline and left paracentral disc protrusion 8 mm with inferior extrusion impressing on the thecal sac, the left subarticular recess, and the descending left S1 nerve. Borderline mild canal stenosis. Disc spur complex on the right encroaching on the foramen which is stenotic. Moderate narrowing of the left foramen. Minimal facet arthrosis bilaterally. L4-5: Disc desiccation with no bulging. Bilateral flavum ligament hypertrophy and right facet arthrosis narrowing the posterior canal which is nearly stenotic. Disc bulge into the left foramen which is borderline stenotic. Moderate narrowing of the right foramen. L3-4: Normal signal in the disc and disc space preserved. Canal narrowed by flavum ligament hypertrophy and minimal facet arthrosis. Bilateral mild foraminal narrowing. L2-3: Normal signal in the disc with disc space preserved. Posterior elements are unremarkable. Canal and bilateral foramina are patent. L1-2: Normal signal in the disc with disc space preserved. Posterior elements unremarkable. Canal and foramina are patent. Conus terminates at L1. T12-L1: Normal signal in the disc with disc space preserved. Posterior elements unremarkable. Canal and foramina are patent. No scoliosis with normal lordosis. Paravertebral soft tissues unremarkable.. Marrow edema like signal in the bilateral L4 and L5 pedicles. Otherwise normal marrow signal in the remaining vertebral bodies and the posterior elements. Vertebral bodies are not compressed at any level. IMPRESSION: 1. Moderate spondylosis at L5-S1 with left posterior disc extrusion encroaching on the thecal sac and the descending left S1 nerve root with stenosis of the left subarticular recess. Right side disc spur complex causing foraminal stenosis and possible impingement of the exiting right L5 nerve. 2. Posterior element facet arthrosis and flavum ligament hypertrophy resulting in near central stenosis, with no disc bulging. Moderate narrowing of the right foramen. Electronically signed by: Winston Bro MD 05/17/2018 3:04 PM CDT
== END ==
LOC: MRI 08:00
PROVIDERS: ATTEND Emergency Medicine
DX: M54.16 Radiculopathy, lumbar region (principal); M47.897 Other spondylosis, lumbosacral region; M48.07 Spinal stenosis, lumbosacral region

== ENCOUNTER → 2018-06-11 | Outpatient (CLI) | payer BC, OTHER | LOC: LAB.O 07:50 | PROVIDERS: ATTEND Emergency Medicine | DX: R30.0 Dysuria (principal) ==

== ENCOUNTER → 2018-08-01 | Outpatient (CLI) | payer BC, OTHER ==
--- NOTE | 2018-08-01 17:37 | CT ---
EXAM DESCRIPTION: Abdomen/Pelvis w/wo Contrast: Computed Tomography. CLINICAL HISTORY: HEMATURIA. Low GFR. COMPARISON: None. TECHNIQUE: Spiral-axial scans at 5 x 5 mm intervals through the abdomen and pelvis before and after half dose nonionic IV contrast. No oral contrast. Coronal and sagittal 2.0 mm reconstructions. 5 x 5 mm Delayed helical-axial scans, liver through the pubic symphysis. No adverse reactions. Total Exam DLP 3506.33 mGy - cm. This exam was performed according to our departmental CT dose-optimization program which includes automated exposure control, adjustment of the mA and/or kV according to patient size and/or use of iterative reconstruction technique; to reduce radiation dose to as low as reasonably achievable (ALARA). FINDINGS: Lung bases and pleura: Negative. Coronary artery calcifications and stents. Liver, Stomach, Spleen, Adrenal Glands: Minimal low-density in the liver. Long axis of the right lobe 20.9 cm. No focal hepatic lesions or ascites. 1.2 x 1.1 cm heterogeneous mass in the left adrenal gland. No cysts. No calcifications. Precontrast density +7.6 to +9.1 HU. Postcontrast density 39.1HU. 5 minute delayed postcontrast density 24.8 HU. Normal density of the surrounding fat. Left adrenal gland and spleen unremarkable. Stomach not distended. Pancreas, Gallbladder, Ducts: Gallbladder visualized. Ducts and pancreas negative. Kidneys and Ureters: 2 mm radiodense stone in the superior collecting system of the right kidney. No hydronephrosis bilaterally. No intrinsic or extrinsic mass effect. No hydronephrosis. No radiodense stones in the ureters or urinary bladder. Normal caliber of the ureters bilaterally. Mesentery: Surgical clips posterior to the mid abdominal wall to the right of midline and anterior to small bowel in the right lower quadrant. Otherwise unremarkable.. No free fluid or free air. Aorta: Moderate atherosclerotic calcification mid and distal segments with narrowing of the lumen distally superior to the bifurcation. No para-aortic mass. Small Bowel: Normal caliber. Terminal Ileum/Cecum: Located in the upper mid pelvis above the urinary bladder. Minimal fecal material in the terminal ileum which is minimally distended. Minimal distention of the cecum by fecal material. Colon: Surgical clips abutting the lateral ascending colon and proximal anterior transverse colon. Constipation in the descending and sigmoid colon. Pelvic Organs: No radiodense stones in the urinary bladder and no significant wall thickening. Minimal distention by IV contrast. Vaginal cuff unremarkable with no significant amount of fluid in the cul-de-sac. Bilateral surgical clips in the pelvis. Spine and Bony Pelvis: Spondylosis L5-S1. Posterior protruding or herniated disc abutting the thecal sac with canal nearly stenotic. Significant bilateral foraminal narrowing and facet arthrosis bilaterally and at L4-5. Multiple anterior osteophytes in the thoracic spine. No blastic or lytic lesions. Minimal hypertrophy of the superior lateral acetabular rims bilaterally. Abdominal Wall/Back Soft Tissues: Subcutaneous adipose edema bilaterally anterior at the level of the upper pelvis no abnormal enhancement. IMPRESSION: 1. 2 mm nonobstructing stone in the upper collecting system of the right kidney. No other radiodense stones in the kidneys ureters or urinary bladder. No hydronephrosis or hydroureter. No perinephric edema. No intrinsic or extrinsic mass in the urinary tracts. 2. Moderate hepatic enlargement with fatty infiltration but no ascites. No intrinsic or extrinsic diagnostic evaluation. Gallbladder and pancreas unremarkable. 3. 1.2 cm heterogeneous mass in the left adrenal gland with minimal enhancement, precontrast density is less than +10 HU consistent with lipid rich adenoma. According to [facility] Best Practice guidelines, no further imaging follow-up is recommended. 4. L5-S1 protruding herniated disc with significant canal and neural foraminal narrowing. Correlate for bilateral L5 radiculopathy. Electronically signed by: Winston Bro MD 08/01/2018 5:36 PM PARCEL [employer] CLERK
== END ==
LOC: LAB.O 08:30
PROVIDERS: ATTEND Urology
DX: R31.29 Other microscopic hematuria (principal); N20.0 Calculus of kidney; K76.0 Fatty (change of) liver, not elsewhere classified; E27.9 Disorder of adrenal gland, unspecified

== ENCOUNTER 2018-08-11 19:56 | Emergency (ER) | payer BC, OTHER ==
[2018-08-11 20:18] VITALS: TEMP 99.3; O2SAT 99
--- NOTE | 2018-08-11 20:30 | ED.PDOC ---
History of Present Illness - General Chief Complaint: Back Pain or Injury Stated Complaint: low back pain from 2 herniated disks Time Seen by Provider: 08/11/18 20:10 Source: patient Exam Limitations: no limitations - History of Present Illness Initial Comments: Rosetta Menard 58 y/o female stated that she had exacerbation of her chronic back pain starting yesterday afternoon stated sharp intermittent LBP radiating to both back of thighs.Had MRI in showing disc herniation ,slipped disc and spinal stenosis.Denies bowel or bladder dysfunction.Had been referred to pain specialist but no definite appointment yet.No fever,no weight loss. Timing/Duration: 24 hours, intermittent Quality/Severity: sharpness Back Pain Location: lumbar spine Back Pain Radiation: upper legs Method of Injury/Prior Injury: other - NONE Improving Factors: rest Worsening Factors: movement Associated Symptoms: lower back pain Allergies/Adverse Reactions: Allergies Metformin Allergy (Intermediate, Verified 08/11/18 20:18) Other Causes severe migraines Sulfamethoxazole w/Trimethoprim [From Bactrim] Allergy (Verified 08/11/18 20:18) Home Medications: Ambulatory Orders Acyclovir [Zovirax] 400 mg PO BID 02/23/17 Aspirin [(None)] 81 mg PO QD 02/23/17 Atenolol [Tenormin] 50 mg PO DAILY 02/23/17 Gabapentin [Neurontin] 300 mg PO BEDTIME 02/23/17 Insulin Glargine [Lantus Solostar] 100 unit SC AC 02/23/17 Isosorbide Mononitrate [Isosorbide Mononitrate ER] 30 mg PO DAILY 02/23/17 Losartan Potassium & Hydrochlo [Losartan Potassium/Hydroc 50-12.5 mg] 1 tab PO DAILY 02/23/17 Rosuvastatin Calcium [Crestor] 40 mg PO BEDTIME 02/23/17 Glipizide [Glipizide ER] 5 mg PO AC 05/04/17 Liraglutide [Victoza] 12 mg SC DAILY 05/04/17 Cyclobenzaprine HCl [Flexeril] 5 mg PO TID PRN #30 tab 05/16/18 Acetamin W/Cod #3 Tab [Tylenol w/CODEINE #3] 1 ea PO Q6HRS PRN #20 tab 08/11/18 Carisoprodol [Soma] 350 mg PO TID PRN #20 tab 08/11/18 Citalopram Hydrobromide [Citalopram] 40 mg PO DAILY 08/11/18 Insulin Glargine 100U/ml [Lantus] 80 unit SUBCU BEDTIME 08/11/18 Bennett-3 Fatty Acids [Bennett 3 500 500 mg] 1 cap PO DAILY 08/11/18 Ticagrelor [Brilinta] 90 mg PO DAILY 08/11/18 predniSONE 20 mg PO DAILY 5 Days #5 tab 08/11/18 Review of Systems - Review of Systems Musculoskeletal: States: see HPI, back pain All other Systems: Reviewed and Negative, No Change from Baseline Past Medical History (General) - Patient Medical History Hx Seizures: No Hx Stroke: No Hx Dementia: No Hx Asthma: No Hx of COPD: No Hx Cardiac Disorders: Yes - 5 stents, 3 heart attacks Hx Congestive Heart Failure: No Hx Pacemaker: No Hx Hypertension: Yes Hx Thyroid Disease: No Hx Diabetes: Yes Hx Gastroesophageal Reflux: Yes Hx Renal Disease: No Hx Cancer: Yes - Ovarian Hx of HIV: No Hx Hepatitis C: No Hx MRSA: No Surgical History: other - hysterectomy,stents cardiac - Vaccination History Hx Influenza Vaccination: Yes - 2016 Hx Pneumococcal Vaccination: Yes - 2014 - Social History Hx Tobacco Use: Yes - Quit 2010 Hx Alcohol Use: No Family Medical History - Family History Mother Family History: Unknown Living Status: Still Living Hx Family Diabetes: Yes - mom Physical Exam - Physical Exam General Appearance: Alert, Anxious, No apparent distress Eyes, Ears, Nose, Throat Exam: normal ENT inspection Neck Exam: normal alignment, normal inspection Cardiovascular/Respiratory: regular rate, rhythm, no M/R/G, normal peripheral pulses, normal breath sounds Peripheral Pulses: radial,right: 2+, radial,left: 2+, dorsalis pedis,right: 2+, dorsalis pedis,left: 2+ Gastrointestinal/Abdominal: non tender, soft Back Exam: no CVA tenderness, no vertebral tenderness Extremity Exam: non-tender, no pedal edema Neurologic: no motor/sensory deficits, alert, oriented x 3, other - patellar reflex-2+ bilaterally;positive SLR test 35 bilaterally Progress - Progress Progress: 08/11/18 20:33 Vital Signs - 24 hr 08/11/18 20:00 Temperature 99.3 F Pulse Rate [ 68 monitor] Respiratory 20 Rate Blood Pressure 142/84 [Left Arm] O2 Sat by Pulse 99 Oximetry 08/11/18 20:36 Explained to patient that oral steroid may temporarily increase her blood sugar. Departure - Departure Clinical Impression: Lumbar disc herniation with radiculopathy, Degenerative lumbar spinal stenosis, Anterolisthesis Acute low back pain with bilateral sciatica Qualifiers: Back pain laterality: bilateral Qualified Code(s): M54.42 - Lumbago with sciatica, left side; M54.41 - Lumbago with sciatica, right side Time of Disposition: 20:48 Disposition: Discharge to Home or Self Care Condition: Fair Departure Forms: ED Discharge - Pt. Copy, Patient Portal Self Enrollment Instructions: DI for Back Pain With Sciatica, DI for Back Spasm Activity: ambulate only with walker Referrals: Roly Conde MD [Primary Care Provider] - 1-2 Weeks Prescriptions: Acetamin W/Cod #3 Tab [Tylenol w/CODEINE #3] 1 ea PO Q6HRS PRN #20 tab PRN Reason: Pain Carisoprodol [Soma] 350 mg PO TID PRN #20 tab PRN Reason: Muscle Spasms predniSONE 20 mg PO DAILY 5 Days #5 tab Home Medications: Ambulatory Orders Acyclovir [Zovirax] 400 mg PO BID 02/23/17 Aspirin [(None)] 81 mg PO QD 02/23/17 Atenolol [Tenormin] 50 mg PO DAILY 02/23/17 Gabapentin [Neurontin] 300 mg PO BEDTIME 02/23/17 Insulin Glargine [Lantus Solostar] 100 unit SC AC 02/23/17 Isosorbide Mononitrate [Isosorbide Mononitrate ER] 30 mg PO DAILY 02/23/17 Losartan Potassium & Hydrochlo [Losartan Potassium/Hydroc 50-12.5 mg] 1 tab PO DAILY 02/23/17 Rosuvastatin Calcium [Crestor] 40 mg PO BEDTIME 02/23/17 Glipizide [Glipizide ER] 5 mg PO AC 05/04/17 Liraglutide [Victoza] 12 mg SC DAILY 05/04/17 Cyclobenzaprine HCl [Flexeril] 5 mg PO TID PRN #30 tab 05/16/18 Acetamin W/Cod #3 Tab [Tylenol w/CODEINE #3] 1 ea PO Q6HRS PRN #20 tab 08/11/18 Carisoprodol [Soma] 350 mg PO TID PRN #20 tab 08/11/18 Citalopram Hydrobromide [Citalopram] 40 mg PO DAILY 08/11/18 Insulin Glargine 100U/ml [Lantus] 80 unit SUBCU BEDTIME 08/11/18 Bennett-3 Fatty Acids [Bennett 3 500 500 mg] 1 cap PO DAILY 08/11/18 Ticagrelor [Brilinta] 90 mg PO DAILY 08/11/18 predniSONE 20 mg PO DAILY 5 Days #5 tab 08/11/18 Additional Instructions: Follow with primary Md for referral to pain specialist Md
[2018-08-11] MEDS ORDERED: ORPHENADRINE CITRATE 30 MG/ML AMP IM ONE (20:34)
[2018-08-11] MEDS ORDERED: MORPHINE SULFATE INJ 10 MG/ML VIAL IM ONE (20:34)
[2018-08-11] MEDS ORDERED: predniSONE 10 MG TAB PO ONE (20:35)
[2018-08-11] MEDS: HYDROCOD/APAP 10/325 (ER DISP) # 3 tablets PO ONE ×2 (21:00→21:09)
[2018-08-11 21:12] VITALS: BP 131/69
== END 2018-08-11 21:12 | disposition home or self-care (01) ==
LOC: ER 19:56
DX: M51.16 Intervertebral disc disorders with radiculopathy, lumbar region (principal); M47.817 Spondylosis without myelopathy or radiculopathy, lumbosacral region; E11.9 Type 2 diabetes mellitus without complications; I10 Essential (primary) hypertension; K21.9 Gastro-esophageal reflux disease without esophagitis; I25.2 Old myocardial infarction; Z95.5 Presence of coronary angioplasty implant and graft; Z79.4 Long term (current) use of insulin; Z79.82 Long term (current) use of aspirin; Z79.899 Other long term (current) drug therapy; Z85.43 Personal history of malignant neoplasm of ovary; Z87.891 Personal history of nicotine dependence; Z88.8 Allergy status to other drugs, medicaments and biological substances
CPT/HCPCS: J2270; J2360; J7512

== ENCOUNTER 2019-03-05 16:41 | Emergency (ER) | payer BC, OTHER ==
[2019-03-05 17:04] VITALS: TEMP 98.1
[2019-03-05] MEDS ORDERED: KETOROLAC TROMETHAMINE INJ 30 MG/ML VIAL IM ONE (17:08)
--- NOTE | 2019-03-05 17:11 | ED.PDOC ---
History of Present Illness - General Chief Complaint: Back Pain or Injury Stated Complaint: low back pain Time Seen by Provider: 03/05/19 17:01 Source: patient Exam Limitations: no limitations - History of Present Illness Initial Comments: the patient is a 59-year-old female presenting to the emergency room secondary to low back pain. She has a chronic low back pain issues with sciatica in the past. She has known to herniated disc. She almost fell twice yesterday but didn't catch herself and feels like she simply straining her back. No deformity. She has been ambulatory. Mild worsening of her sciatica on the left. She has palpable muscle spasm adjacent to L3 and L4 bilaterally. No step-off. No new deformity. Timing/Duration: 24 hours Severity: moderate Improving Factors: immobilization Worsening Factors: movement Associated Symptoms: denies symptoms Allergies/Adverse Reactions: Allergies Metformin Allergy (Intermediate, Verified 08/11/18 20:18) Other Causes severe migraines Cephalexin [From Keflex] Allergy (Verified 03/05/19 17:04) Sulfamethoxazole w/Trimethoprim [From Bactrim] Allergy (Verified 08/11/18 20:18) Home Medications: Ambulatory Orders Acyclovir [Zovirax] 400 mg PO BID 02/23/17 Aspirin [(None)] 81 mg PO QD 02/23/17 Atenolol [Tenormin] 50 mg PO DAILY 02/23/17 Gabapentin [Neurontin] 300 mg PO BEDTIME 02/23/17 Insulin Glargine [Lantus Solostar] 100 unit SC AC 02/23/17 Isosorbide Mononitrate [Isosorbide Mononitrate ER] 30 mg PO DAILY 02/23/17 Losartan Potassium & Hydrochlo [Losartan Potassium/Hydroc 50-12.5 mg] 1 tab PO DAILY 02/23/17 Rosuvastatin Calcium [Crestor] 40 mg PO BEDTIME 02/23/17 Glipizide [Glipizide ER] 5 mg PO AC 05/04/17 Liraglutide [Victoza] 12 mg SC DAILY 05/04/17 Cyclobenzaprine HCl [Flexeril] 5 mg PO TID PRN #30 tab 05/16/18 Acetamin W/Cod #3 Tab [Tylenol w/CODEINE #3] 1 ea PO Q6HRS PRN #20 tab 08/11/18 Carisoprodol [Soma] 350 mg PO TID PRN #20 tab 08/11/18 Citalopram Hydrobromide [Citalopram] 40 mg PO DAILY 08/11/18 Insulin Glargine 100U/ml [Lantus] 80 unit SUBCU BEDTIME 08/11/18 Fenton-3 Fatty Acids [Fenton 3 500 500 mg] 1 cap PO DAILY 08/11/18 Ticagrelor [Brilinta] 90 mg PO DAILY 08/11/18 predniSONE 20 mg PO DAILY 5 Days #5 tab 08/11/18 Cyclobenzaprine HCl [Flexeril] 10 mg PO TID PRN #20 tab 03/05/19 Review of Systems - Review of Systems Constitutional: States: no symptoms reported EENTM: States: no symptoms reported Respiratory: States: no symptoms reported Cardiology: States: no symptoms reported Gastrointestinal/Abdominal: States: no symptoms reported Genitourinary: States: no symptoms reported Musculoskeletal: States: see HPI Skin: States: no symptoms reported Neurological: States: see HPI Endocrine: States: no symptoms reported All other Systems: No Change from Baseline Past Medical History (General) - Patient Medical History Hx Seizures: No Hx Stroke: No Hx Dementia: No Hx Asthma: No Hx of COPD: No Hx Cardiac Disorders: Yes - 5 stents, 3 heart attacks Hx Congestive Heart Failure: No Hx Pacemaker: No Hx Hypertension: Yes Hx Thyroid Disease: No Hx Diabetes: Yes Hx Gastroesophageal Reflux: Yes Hx Renal Disease: No Hx Cancer: Yes - Ovarian Hx of HIV: No Hx Hepatitis C: No Hx MRSA: No Surgical History: Hysterectomy - Vaccination History Hx Influenza Vaccination: Yes Hx Pneumococcal Vaccination: Yes - Social History Hx Tobacco Use: Yes Hx Alcohol Use: No Family Medical History - Family History Mother Family History: Unknown Living Status: Still Living Hx Family Diabetes: Yes - mom Physical Exam - Physical Exam General Appearance: Alert, Comfortable, No apparent distress Eye Exam: bilateral normal Ears, Nose, Throat: hearing grossly normal, normal pharynx Neck: full range of motion Respiratory: no respiratory distress, no accessory muscle use Cardiovascular/Chest: normal peripheral pulses, no edema, other - regular rate Peripheral Pulses: radial,right: 2+, radial,left: 2+ Gastrointestinal/Abdominal: non tender, soft Rectal Exam: deferred Back Exam: no vertebral tenderness, CVA tenderness (R), CVA tenderness (L) Extremity: non-tender, normal inspection, no pedal edema, normal capillary refill Neurologic: director of operations II-XII nml as tested, alert, normal mood/affect, oriented x 3 Skin Exam: normal color Comments: Vital Signs - 24 hr 03/05/19 17:00 Temperature 98.1 F Pulse Rate [ 62 Left Brachial] Respiratory 20 Rate Blood Pressure 129/71 [Left Arm] O2 Sat by Pulse 98 Oximetry Progress - Progress Progress: 03/05/19 17:12 the patient is a 59-year-old female presenting secondary to low back pain with associated muscle spasm and sciatica. The patient was given a shot of Toradol written for Flexeril for as needed use. She can use her tramadol if needed as well. I would also recommend she take 2 Aleve twice daily with food for the next 2 or 3 days. Topical heat in the form of a heat pad, icy hot or Biofreeze may also prove beneficial. She does have exercises that she can do to help with her chronic low back pain. She can follow up with her primary care doctor next week. ER warnings are given. Departure - Departure Clinical Impression: Acute low back pain with bilateral sciatica Qualifiers: Back pain laterality: bilateral Qualified Code(s): M54.42 - Lumbago with sciatica, left side; M54.41 - Lumbago with sciatica, right side Disposition: Discharge to Home or Self Care Condition: Fair Departure Forms: ED Discharge - Pt. Copy, Patient Portal Self Enrollment Instructions: DI for Back Pain With Sciatica Diet: diabetic diet Activity: increase activity as tolerated Referrals: Roly Conde MD [Primary Care Provider] - 1-2 Weeks Prescriptions: Cyclobenzaprine HCl [Flexeril] 10 mg PO TID PRN #20 tab PRN Reason: Muscle Spasms Home Medications: Ambulatory Orders Acyclovir [Zovirax] 400 mg PO BID 02/23/17 Aspirin [(None)] 81 mg PO QD 02/23/17 Atenolol [Tenormin] 50 mg PO DAILY 02/23/17 Gabapentin [Neurontin] 300 mg PO BEDTIME 02/23/17 Insulin Glargine [Lantus Solostar] 100 unit SC AC 02/23/17 Isosorbide Mononitrate [Isosorbide Mononitrate ER] 30 mg PO DAILY 02/23/17 Losartan Potassium & Hydrochlo [Losartan Potassium/Hydroc 50-12.5 mg] 1 tab PO DAILY 02/23/17 Rosuvastatin Calcium [Crestor] 40 mg PO BEDTIME 02/23/17 Glipizide [Glipizide ER] 5 mg PO AC 05/04/17 Liraglutide [Victoza] 12 mg SC DAILY 05/04/17 Cyclobenzaprine HCl [Flexeril] 5 mg PO TID PRN #30 tab 05/16/18 Acetamin W/Cod #3 Tab [Tylenol w/CODEINE #3] 1 ea PO Q6HRS PRN #20 tab 08/11/18 Carisoprodol [Soma] 350 mg PO TID PRN #20 tab 08/11/18 Citalopram Hydrobromide [Citalopram] 40 mg PO DAILY 08/11/18 Insulin Glargine 100U/ml [Lantus] 80 unit SUBCU BEDTIME 08/11/18 Fenton-3 Fatty Acids [Fenton 3 500 500 mg] 1 cap PO DAILY 08/11/18 Ticagrelor [Brilinta] 90 mg PO DAILY 08/11/18 predniSONE 20 mg PO DAILY 5 Days #5 tab 08/11/18 Cyclobenzaprine HCl [Flexeril] 10 mg PO TID PRN #20 tab 03/05/19 Additional Instructions: the patient is a 59-year-old female presenting secondary to low back pain with associated muscle spasm and sciatica. The patient was given a shot of Toradol written for Flexeril for as needed use. She can use her tramadol if needed as well. I would also recommend she take 2 Aleve twice daily with food for the next 2 or 3 days. Topical heat in the form of a heat pad, icy hot or Biofreeze may also prove beneficial. She does have exercises that she can do to help with her chronic low back pain. She can follow up with her primary care doctor next week. ER warnings are given.
[2019-03-05 17:46] VITALS: BP 129/65; O2SAT 97
== END 2019-03-05 17:46 | disposition home or self-care (01) ==
LOC: ER 16:41
DX: M54.42 Lumbago with sciatica, left side (principal); M54.41 Lumbago with sciatica, right side; I25.2 Old myocardial infarction; I10 Essential (primary) hypertension; E11.9 Type 2 diabetes mellitus without complications; K21.9 Gastro-esophageal reflux disease without esophagitis; Z85.43 Personal history of malignant neoplasm of ovary; Z87.891 Personal history of nicotine dependence; Z95.5 Presence of coronary angioplasty implant and graft; Z79.4 Long term (current) use of insulin; Z79.82 Long term (current) use of aspirin; Z79.899 Other long term (current) drug therapy; Z88.8 Allergy status to other drugs, medicaments and biological substances; Z88.1 Allergy status to other antibiotic agents; Z88.2 Allergy status to sulfonamides

== ENCOUNTER → 2019-05-02 | Outpatient (CLI) | payer BC, OTHER ==
--- NOTE | 2019-05-03 10:58 | US ---
EXAM DESCRIPTION: Renal: Ultrasound. CLINICAL HISTORY: 59 years Female CHRONIC KIDNEY DISEASE STAGE 3 COMPARISON: None TECHNIQUE: Transcutaneous scanning: Two-dimensional and Doppler modes. Technically difficult study due to patient large body habitus. FINDINGS: Right kidney measures 10.1 x 5.5 x 5.3 cm; mid-renal cortical thickness 14 mm . Normal cortical echogenicity. 2.6 mm calcified echogenic stone in the mid renal cortex with acoustic shadowing. No hydronephrosis No echogenic stones. Smooth contour of the kidney with no perinephric fluid. Normal vascularity. Proximal ureter not visualized. Left kidney measures 10.5 x 5.6 x 5.5 cm; mid-renal cortical thickness 12 mm. echogenicity. No hydronephrosis. No echogenic stones. Smooth contour of the kidney with no perinephric fluid. Normal vascularity.. Proximal ureter not visualized. Urinary bladder not visualized. Abdominal aorta: not measured. IMPRESSION: 1. Right kidney with 2.6 mm stone in the mid renal cortex, otherwise unremarkable. 2. Left kidney with thinning of the cortex, consistent with the clinical history. Otherwise negative. Electronically signed by: Winston Bro MD 05/03/2019 10:56 AM CDT
== END ==
LOC: US 08:00
PROVIDERS: ATTEND Surgery Vascular Surgery
DX: N18.3 Chronic kidney disease, stage 3 (moderate) (principal); N20.0 Calculus of kidney

== ENCOUNTER 2019-05-03 10:08 | Observation (INO) | payer BC, OTHER ==
[2019-05-03] MEDS ORDERED: ASPIRIN (CHEWABLE) 81 MG TAB PO ONE (10:44)
[2019-05-03] MEDS ORDERED: SODIUM CHLORIDE 0.9% (FLUSH) 10 ML SYG IV PRN ×2 (10:44→14:35)
--- NOTE | 2019-05-03 11:14 | ED.PDOC ---
History of Present Illness - General Chief Complaint: General Stated Complaint: Nausea, clammy, pale, feeling "off" Time Seen by Provider: 05/03/19 10:43 Source: patient, RN notes reviewed, Vital Signs reviewed, family Exam Limitations: no limitations - History of Present Illness Initial Comments: Pt is a 59 y/o WF who presents with c/o low back pain and near syncope. Pt has a hx of a bulging disc and she is seeking medical clearance next week from cardiology. Pt is currently on Brillenta. Pt was out estate shopping with her and mother and had worsening back pain. Pt had already taken her ultram. As the pain became worse, she became nauseated and had some sob and mild chest tightness. Pt nearly syncopized. had her sit down in the car and drove her to the ED. Pt states her dizziness/nausea/cp resovled once she was able to lay down and her back pain resolved. Pt denies any vomiting or diarrhea. Timing/Duration: 1/2 hour Severity: severe Improving Factors: rest, other - lying down Worsening Factors: other - standing/sitting Associated Symptoms: chest pain, diaphoresis, nausea/vomiting - no vomiting, shortness of breath, other - near syncope Allergies/Adverse Reactions: Allergies Metformin Allergy (Intermediate, Verified 08/11/18 20:18) Other Causes severe migraines Cephalexin [From Keflex] Allergy (Verified 05/03/19 12:57) Vomitting Sulfamethoxazole w/Trimethoprim [From Bactrim] Allergy (Verified 05/03/19 12:57) Vomitting Home Medications: Ambulatory Orders Acyclovir [Zovirax] 400 mg PO BID 02/23/17 Aspirin [(None)] 81 mg PO QD 02/23/17 Atenolol [Tenormin] 50 mg PO DAILY 02/23/17 Gabapentin [Neurontin] 300 mg PO TID 02/23/17 Insulin Glargine [Lantus Solostar] 100 unit SC DAILY 02/23/17 Isosorbide Mononitrate [Isosorbide Mononitrate ER] 30 mg PO DAILY 02/23/17 Rosuvastatin Calcium [Crestor] 40 mg PO BEDTIME 02/23/17 Citalopram Hydrobromide [Citalopram] 40 mg PO DAILY 08/11/18 Insulin Glargine 100U/ml [Lantus] 80 unit SUBCU BEDTIME 08/11/18 [place]-3 Fatty Acids [Corrigan 3 500 500 mg] 1 cap PO DAILY 08/11/18 Ticagrelor [Brilinta] 90 mg PO BID 08/11/18 DULoxetine HCL [Cymbalta] 30 mg PO DAILY 05/03/19 Flaxseed (Linseed) [Flaxseed Oil] 1,000 mg PO DAILY 05/03/19 Human Insulin Aspart [Novolog] 0 unit SC AC PRN 05/03/19 Pantoprazole Sodium 40 mg PO DAILY 05/03/19 Telmisartan 40 mg PO DAILY 05/03/19 Review of Systems - Review of Systems Constitutional: States: see HPI EENTM: States: blurred vision Respiratory: States: see HPI, short of breath Cardiology: States: see HPI, chest pain, palpitations, syncope Gastrointestinal/Abdominal: States: see HPI, nausea Genitourinary: States: no symptoms reported Musculoskeletal: States: back pain Skin: States: no symptoms reported Neurological: States: weakness Endocrine: States: no symptoms reported All other Systems: Reviewed and Negative Past Medical History (General) - Patient Medical History Hx Seizures: No Hx Stroke: No Hx Dementia: No Hx Asthma: No Hx of COPD: No Hx Cardiac Disorders: Yes - SC x 4, cardiac stents; dyslipidemia. Pt reports 1st SC at 48 Hx Congestive Heart Failure: No Hx Pacemaker: No Hx Hypertension: Yes Hx Thyroid Disease: No Hx Diabetes: Yes Hx Gastroesophageal Reflux: Yes Hx Renal Disease: - Reports decreased kidney function Hx Cancer: Yes - Uterine at 33 y/o with total hysterectomy except for cervix Hx of HIV: No Hx Hepatitis C: No Hx MRSA: No Surgical History: Hysterectomy, other - Vaccination History Hx Influenza Vaccination: Yes - 2017 Hx Pneumococcal Vaccination: Yes - Social History Hx Tobacco Use: Yes - Quit 2011 Hx Alcohol Use: No Family Medical History - Family History Mother Living Status: Still Living Hx Family Diabetes: Yes - mom Hx Family Cancer: Yes - Mother with hx of breast cancer. Physical Exam - Physical Exam General Appearance: Alert, Anxious, Obese, Well Developed, Well Groomed, Well Hydrated, Well Nourished Eye Exam: bilateral normal Ears, Nose, Throat: hearing grossly normal Neck: non-tender, full range of motion, supple Respiratory: chest non-tender, lungs clear, normal breath sounds, no respiratory distress, no accessory muscle use Cardiovascular/Chest: normal peripheral pulses, regular rate, rhythm, no edema, no gallop, no JVD, no murmur, bradycardia Peripheral Pulses: radial,right: 2+, radial,left: 2+ Gastrointestinal/Abdominal: normal bowel sounds, non tender, soft, no organomegaly, no pulsatile mass Back Exam: decreased range of motion, vertebral tenderness - lumbar spine midline at site of known herniated disk. Extremity: normal range of motion, non-tender, normal inspection, no pedal edema, no calf tenderness, normal capillary refill Neurologic: vice president risk management II-XII nml as tested, no motor/sensory deficits, alert, normal mood/affect, oriented x 3 Skin Exam: normal color, warm/dry Lymphatic: no adenopathy Progress - Progress Progress: 05/03/19 11:36 Spoke with Nelly Escoto who accepts the pt for admission after a 2nd negative Troponin at 1.5 hrs after initial negative troponin.\\ 05/03/19 12:10 Updated pt on the plan of care to admit to the hospitalist service once a second negative troponin is complete. Pt voices understanding and agreement with the plan of care. 05/03/19 13:20 Pt admitted to hospitalist. Benjy Green M.D. #[id number] - Results/Orders Results/Orders: 05/03/19 10:22 GLUCOSE, FINGER STICK Stat 05/03/19 10:44 Sodium Chloride 0.9% (Flush) [Saline Flush Syringe] 3 ml IV PRN PRN 05/03/19 10:45 IV Care:Saline Lock per Protoc QSHIFT Telemetry ONCE EKG STAT Oxygen Stat Chest,1 View [RAD] Stat 05/03/19 12:30 TROPONIN-I Routine 05/04/19 09:00 Pulse Ox Daily 05/04/19 10:45 EKG STAT Laboratory Results - last 24 hr 05/03/19 10:59 WBC 5.6 RBC 4.01 L Hgb 11.7 L Hct 34.9 L MCV 87.2 MCH 29.1 MCHC 33.4 RDW 14.9 H Plt Count 326 MPV 8.7 Absolute Neuts (auto) 3.10 Absolute Lymphs (auto) 1.70 Absolute Monos (auto) 0.50 Absolute Eos (auto) 0.20 Absolute Basos (auto) 0.10 Neutrophils % 55.7 Lymphocytes % 31.1 Monocytes % 9.1 H Eosinophils % 2.9 Basophils % 1.2 PT 9.2 INR 0.92 PTT (SP) 22.5 Sodium 135 Potassium 3.8 Chloride 102 Carbon Dioxide 21 Anion Gap 15.8 BUN 32 H Creatinine 1.63 H BUN/Creatinine Ratio 19.6 Random Glucose 174 H Serum Osmolality 281.2 Calcium 9.1 Magnesium 2.1 Creatine Kinase 133 CK-MB (CK-2) 4.5 H CK-MB (CK-2) % Not Reportable Troponin I < 0.02 05/03/2019 @1319 hrs: Repeate troponin is <0.02 - EKG/XRAY/CT EKG: Bruno, Sinus Comments: Sinus bradycardia @ 56 bpm, NAD, septal infarct age indeterminate, abnl ekg XRAY: chest - cxr shows no cardiomegally, effusions or consolidation. No acute disease. Departure - Departure Clinical Impression: Near syncope, Chest pain in adult Back pain Qualifiers: Back pain location: low back pain Chronicity: chronic Back pain laterality: midline Sciatica presence: without sciatica Qualified Code(s): M54.5 - Low back pain Disposition: Admit Patient Condition: Good Departure Forms: ED Discharge - Pt. Copy, Patient Portal Self Enrollment Referrals: WILLARD JIMENEZ [Primary Care Provider] - 1-2 Weeks Home Medications: Ambulatory Orders Acyclovir [Zovirax] 400 mg PO BID 02/23/17 Aspirin [(None)] 81 mg PO QD 02/23/17 Atenolol [Tenormin] 50 mg PO DAILY 02/23/17 Gabapentin [Neurontin] 300 mg PO TID 02/23/17 Insulin Glargine [Lantus Solostar] 100 unit SC DAILY 02/23/17 Isosorbide Mononitrate [Isosorbide Mononitrate ER] 30 mg PO DAILY 02/23/17 Rosuvastatin Calcium [Crestor] 40 mg PO BEDTIME 02/23/17 Citalopram Hydrobromide [Citalopram] 40 mg PO DAILY 08/11/18 Insulin Glargine 100U/ml [Lantus] 80 unit SUBCU BEDTIME 08/11/18 Corrigan-3 Fatty Acids [Corrigan 3 500 500 mg] 1 cap PO DAILY 08/11/18 Ticagrelor [Brilinta] 90 mg PO BID 08/11/18 DULoxetine HCL [Cymbalta] 30 mg PO DAILY 05/03/19 Flaxseed (Linseed) [Flaxseed Oil] 1,000 mg PO DAILY 05/03/19 Human Insulin Aspart [Novolog] 0 unit SC AC PRN 05/03/19 Pantoprazole Sodium 40 mg PO DAILY 05/03/19 Telmisartan 40 mg PO DAILY 05/03/19 Decision To Admit - Decistion To Admit Decision to Admit Reason: Medical Nature Decision to Admit Date: 05/03/19 Decision to Admit Time: 11:37
--- NOTE | 2019-05-03 11:43 | RAD ---
EXAM: XR Chest, 1 View CLINICAL HISTORY: syncope TECHNIQUE: Frontal view of the chest. COMPARISON: 03/08/2018. FINDINGS: Limitations: None. Lungs: Stable calcified granuloma right upper lobe. Pleural space: Unremarkable. No pneumothorax. Heart: Unremarkable. No cardiomegaly. Mediastinum: Unremarkable. Bones/joints: Unremarkable. IMPRESSION: No significant acute abnormality noted. Electronically signed by: Leila Torres MD 05/03/2019 11:41 AM CDT
[2019-05-03] MEDS ORDERED: NITROGLYCERIN 0.4 MG 25 EA TAB SL PRN (14:35)
[2019-05-03] MEDS ORDERED: ACETAMINOPHEN 325 MG TAB PO PRN (14:35)
[2019-05-03] MEDS ORDERED: MORPHINE SULFATE INJ 10 MG/ML VIAL IV PRN (14:35)
[2019-05-03] MEDS ORDERED: DEXTROSE 50% 25 GM/50 ML SYG IV PRN (14:40)
[2019-05-03] MEDS ORDERED: GLUCAGON INJ 1 MG VIAL SUBCU PRN (14:40)
[2019-05-03] MEDS ORDERED: IV SET AND CAP CHANGE INJ INJ SCH (15:00)
[2019-05-03] MEDS: GABAPENTIN 300 MG CAP PO SCH ×2 (15:55→20:36)
[2019-05-03] MEDS: INSULIN LISPRO 100 UNITS/ML PEN SUBCU SCH ×2 (16:46→21:04)
[2019-05-03] MEDS ORDERED: PANTOPRAZOLE SODIUM TAB 40 MG PO ONE (19:16)
[2019-05-03] MEDS: NON-FORMULARY MEDICATION 1 EA MIS (Ticagrelor [Brilinta] 90 MG) PO SCH (20:36)
[2019-05-03] MEDS: SODIUM CHLORIDE 0.9% (FLUSH) 10 ML SYG IV SCH (20:36)
[2019-05-03] MEDS: ACYCLOVIR 200 MG CAP PO SCH (20:36)
[2019-05-03] MEDS ORDERED: ZOLPIDEM TARTRATE 5 MG TAB PO PRN (20:38)
[2019-05-03] MEDS ORDERED: GABAPENTIN 300 MG CAP PO SCH (21:00)
[2019-05-03] MEDS ORDERED: ATORVASTATIN 20 MG TAB PO SCH (21:00)
[2019-05-03] MEDS ORDERED: INSULIN DETEMIR 100 UNITS/ML PEN SUBCU SCH (21:00)
[2019-05-04] MEDS ORDERED: PANTOPRAZOLE SODIUM TAB 40 MG PO SCH (06:30)
[2019-05-04] MEDS: INSULIN LISPRO 100 UNITS/ML PEN SUBCU SCH ×2 (07:00→12:14)
[2019-05-04] MEDS ORDERED: ATENOLOL 25 MG TAB PO SCH (09:00)
[2019-05-04] MEDS ORDERED: ISOSORBIDE MONONITRATE (IMDUR) 30 MG TAB PO SCH (09:00)
[2019-05-04] MEDS ORDERED: DULoxetine HCL 30 MG CAP PO SCH (09:00)
[2019-05-04] MEDS ORDERED: INSULIN DETEMIR 100 UNITS/ML PEN SUBCU SCH (09:00)
[2019-05-04] MEDS ORDERED: CITALOPRAM HBR 20 MG TAB PO SCH (09:00)
[2019-05-04] MEDS ORDERED: LOSARTAN POTASSIUM 25 MG TAB PO SCH (09:00)
[2019-05-04] MEDS ORDERED: GABAPENTIN 300 MG CAP PO SCH (09:00)
[2019-05-04] MEDS ORDERED: ASPIRIN TABLET 325 MG TAB PO SCH (09:00)
[2019-05-04] MEDS: ACYCLOVIR 200 MG CAP PO SCH (09:02)
[2019-05-04] MEDS: NON-FORMULARY MEDICATION 1 EA MIS (Ticagrelor [Brilinta] 90 MG) PO SCH (09:04)
[2019-05-04] MEDS: SODIUM CHLORIDE 0.9% (FLUSH) 10 ML SYG IV SCH (09:04)
[2019-05-04 15:21] VITALS: BP 104/72; TEMP 98.4; O2SAT 97
--- NOTE | 2019-05-04 15:59 | SSS ---
SUPERVISING PHYSICIAN: Harry Berman M.D. DISCHARGE DIAGNOSES: 1. Chest pain, rule out acute coronary syndrome. She has had negative cardiac enzymes and no further chest pain, and no changes on EKG. 2. Degenerative disc disease with lumbar radiculopathy. She is awaiting surgery. 3. New syncopal episode without loss of consciousness that may be exacerbated by increased lower back pain. 4. Herniated disc of the lumbar spine awaiting surgery that should happen in May. She was unable to have surgery until May because she recently was put on Brilinta due to her stents. 5. History of myocardial infarction times 4 with recent stent placement. 6. Chronic renal insufficiency. 7. Hypertension on medications. 8. Gastroesophageal reflux disease. 9. Diabetes mellitus type 2. 10. Hyperlipidemia. 11. History of uterine cancer. HISTORY OF PRESENT ILLNESS: This is a 59 year-old female patient that has an extensive history of coronary artery disease with multiple myocardial infarctions. She also has a history of a bulging herniated disc in her lumbar spine and she is awaiting medical clearance from cardiology to have that done. She has been on Brilinta and is unable to have any surgical procedures until she gets off of that. She actually does have an appointment with her demolition expert, Dr. Hough in [place] on Sunday. Over the last few days she has had worsening back pain. She was out shopping with her mother and dad and she became very nauseated, had some shortness of breath with chest tightness. She actually had a syncopal episode although she did not lose consciousness, nor did she fall. Her dad had her sit down in the car and he drove her to the Emergency Room. In the Emergency Room, her initial vital signs showed a temperature of 97.1 with a heart rate of 54, blood pressure 103/52, respiratory rate 18, O2 sat 96%. Laboratory was done. CBC was basically unremarkable. Initial cardiac enzymes were also negative. Her 2 hour followup troponin was also less than 0.02. Chemistries were within normal limits with the exception of her BUN was 32, creatinine 1.63. She does have a history of chronic renal insufficiency. Chest x-ray was done. Her chest x-ray showed no significant acute abnormality noted. I was called to place the patient in observation. HOSPITAL COURSE: The patient had no further complaints of chest pain. She continued to have some lower back pain but with rest that improved. We adjusted her Neurontin to maybe help with her back pain. She normally took 300 mg t.i.d. and we adjusted it where she took 300 in the morning, 300 in the afternoon and 600 at night. Her cardiac enzymes were all negative. There were no neurologic changes or syncopal events. She will be discharged home today in stable condition. FOLLOWUP LABORATORY: Glucose between 190 and 320. Followup chemistries were unremarkable. Creatinine did improve slightly to 1.53. Triglycerides were 245, LDL was 58 and HDL was 30. Serial cardiac enzymes were all negative. There were no further radiology reports. DISCHARGE PLAN: The patient will be discharged home in stable condition. She is to resume her previous diet and activity as well as her previous medications. I have increased her Gabapentin to 600 mg at bedtime. She is to continue with the 300 mg in the morning and the afternoon. I have also given her a few Ambien to help with sleep. She is to followup with Dr. Bahena, her primary care physician, within the next 1 to 2 weeks. She does have an appointment with Dr. Hough on 05/07/19 for cardiac clearance for her back surgery. She also has a followup appointment with her circuit board drafter, Dr. Clovis Mays. She is to return to the hospital or followup with Dr. Bahena or Dr. Hough for any problems or complications. DISCHARGE MEDICATIONS: 1. Aspirin. 2. Crestor. 3. Isosorbide. 4. Lantus. 5. Gabapentin. 6. Atenolol. 7. Acyclovir. 8. Brilinta. 9. Citalopram. 10. [place]-3 fatty acids. 11. NovoLog insulin. 12. Cymbalta. 13. Pantoprazole. 14. Telmisartan. 15. Flax seed oil. 16. Zolpidem. #[id number] [facility]
== END 2019-05-04 14:25 | disposition home or self-care (01) ==
LOC: ER 10:08 → INTOOBSV 13:52 → OBSVTOIN 13:52 → MS 13:52
PROVIDERS: ADMIT Nurse Practitioner Acute Care; ATTEND Nurse Practitioner Acute Care
DX: R07.89 Other chest pain (principal); M51.16 Intervertebral disc disorders with radiculopathy, lumbar region; R55 Syncope and collapse; I25.10 Atherosclerotic heart disease of native coronary artery without angina pectoris; I12.9 Hypertensive chronic kidney disease with stage 1 through stage 4 chronic kidney disease, or unspecified chronic kidney disease; E11.22 Type 2 diabetes mellitus with diabetic chronic kidney disease; N18.9 Chronic kidney disease, unspecified; E11.65 Type 2 diabetes mellitus with hyperglycemia; K21.9 Gastro-esophageal reflux disease without esophagitis; E78.5 Hyperlipidemia, unspecified; I25.2 Old myocardial infarction; R00.1 Bradycardia, unspecified; Z79.02 Long term (current) use of antithrombotics/antiplatelets; Z79.4 Long term (current) use of insulin; Z79.82 Long term (current) use of aspirin; Z79.899 Other long term (current) drug therapy; Z88.2 Allergy status to sulfonamides; Z88.1 Allergy status to other antibiotic agents; Z88.8 Allergy status to other drugs, medicaments and biological substances; Z95.5 Presence of coronary angioplasty implant and graft; Z85.42 Personal history of malignant neoplasm of other parts of uterus; Z90.710 Acquired absence of both cervix and uterus; Z87.891 Personal history of nicotine dependence; Z80.3 Family history of malignant neoplasm of breast; Z83.3 Family history of diabetes mellitus
CPT/HCPCS: 96372 ×2; J1815 ×2; 82553 ×3; 80053; 82948 ×5; 80061; 36415 ×2; 82550 ×3; 80048; 85025 ×2; 85730; 85610; 84484 ×4; 36416; 71045; 94760 ×2; 99285; 93005 ×3

== ENCOUNTER 2019-05-17 11:12 | Emergency (ER) | payer BC, OTHER ==
--- NOTE | 2019-05-17 12:42 | ED.PDOC ---
History of Present Illness - General Chief Complaint: Problem Time Seen by Provider: 05/17/19 11:13 Source: patient, RN notes reviewed, Vital Signs reviewed, RN/MD Exam Limitations: no limitations Additional Information: Patient presents for evaluation of dysuria and lower abdominal pain over the past few days. She had low grade fevers yesterday and an episode of vomiting. She has also had right sided back pain. She endorses dysuria, urinary frequency and hesitancy. She states that she has frequent UTIs. She is tolerating PO without difficulty today. She denies any constipation or diarrhea. She otherwise denies any complaints. - History of Present Illness Allergies/Adverse Reactions: Allergies Metformin Allergy (Intermediate, Verified 05/03/19 14:21) Other Causes severe migraines Cephalexin [From Keflex] Allergy (Verified 05/03/19 14:21) Vomitting Kiwi Extract Allergy (Verified 05/03/19 14:56) Headache Sulfamethoxazole w/Trimethoprim [From Bactrim] Allergy (Verified 05/03/19 14:21) Vomitting Home Medications: Ambulatory Orders RX: Acyclovir [Zovirax] 400 mg PO BID 02/23/17 RX: Aspirin 81 mg PO QD 02/23/17 RX: Atenolol [Tenormin] 50 mg PO DAILY 02/23/17 RX: Insulin Glargine [Lantus Solostar] 100 unit SC DAILY 02/23/17 RX: Isosorbide Mononitrate [Isosorbide Mononitrate ER] 30 mg PO DAILY 02/23/17 RX: Rosuvastatin Calcium [Crestor] 40 mg PO BEDTIME 02/23/17 RX: Citalopram Hydrobromide [Citalopram] 40 mg PO DAILY 08/11/18 RX: Insulin Glargine 100U/ml [Lantus] 80 unit SUBCU BEDTIME 08/11/18 RX: Mill[place]-3 Fatty Acids [Mill[place] 3 500 500 mg] 1 cap PO DAILY 08/11/18 RX: Ticagrelor [Brilinta] 90 mg PO BID 08/11/18 RX: DULoxetine HCL [Cymbalta] 30 mg PO DAILY 05/03/19 RX: Flaxseed (Linseed) [Flaxseed Oil] 1,000 mg PO DAILY 05/03/19 RX: Human Insulin Aspart [Novolog] 0 unit SC AC PRN 05/03/19 RX: Pantoprazole Sodium 40 mg PO DAILY 05/03/19 RX: Telmisartan 40 mg PO DAILY 05/03/19 RX: Gabapentin [Neurontin] 300 mg PO 0900,1500 #0 05/04/19 RX: Gabapentin [Neurontin] 600 mg PO BEDTIME #60 cap 05/04/19 RX: Zolpidem Tartrate [Ambien] 5 mg PO BEDTIME PRN #20 tab 05/04/19 Cephalexin Monohydrate [Keflex] 500 mg PO QID 14 Days #56 cap 05/17/19 Review of Systems - Review of Systems Constitutional: States: fever. Denies: chills EENTM: States: no symptoms reported Respiratory: States: no symptoms reported Cardiology: States: no symptoms reported Gastrointestinal/Abdominal: States: abdominal pain, nausea, vomiting Genitourinary: States: dysuria, frequency Musculoskeletal: States: back pain Neurological: States: no symptoms reported Past Medical History (General) - Patient Medical History Hx Seizures: No Hx Stroke: No Hx Dementia: No Hx Asthma: No Hx of COPD: No Hx Cardiac Disorders: Yes - [place] x 4, cardiac stents; dyslipidemia. Pt reports 1s t MA at 48 Hx Congestive Heart Failure: No Hx Pacemaker: No Hx Hypertension: Yes Hx Thyroid Disease: No Hx Diabetes: Yes Hx Gastroesophageal Reflux: Yes Hx Renal Disease: - Reports decreased kidney function Hx Cancer: Yes - Uterine at 33 y/o with total hysterectomy except for cervix Hx of HIV: No Hx Hepatitis C: No Hx MRSA: No - Vaccination History Hx Influenza Vaccination: Yes - 2017 Hx Pneumococcal Vaccination: Yes - Social History Hx Tobacco Use: Yes - Quit 2011 Hx Alcohol Use: No Hx Substance Use: No Hx Physical Abuse: No Hx Emotional Abuse: No Family Medical History - Family History Mother Family History: Unknown Living Status: Still Living Hx Family Diabetes: Yes - mom Hx Family Cancer: Yes - Mother with hx of breast cancer. Physical Exam - Physical Exam General Appearance: Alert, Comfortable, No apparent distress, Well Developed, Well Groomed, Well Hydrated, Well Nourished Neck: full range of motion, supple, normal inspection Cardiovascular/Respiratory: regular rate, rhythm, no M/R/G, normal peripheral pulses, no JVD, normal breath sounds, no respiratory distress Gastrointestinal/Abdominal: normal bowel sounds, non tender, soft Back Exam: other - No CVA tenderness. TTP inferior to right CVA Extremity: normal range of motion, normal inspection, no pedal edema Neurologic: alert, normal mood/affect, oriented x 3 Skin Exam: normal color Progress - Progress Progress: DDx: UTI, Pyelonephritis, colitis, appendicitis, renal stone, MAJOR, Electrolyte derangement 05/17/19 14:58 Patient presented with complaints of urinary frequency, nausea, and vomiting. She was overall well appearing and non-toxic. She had no focal abdominal tender ness. UA was not overtly suggestive of UTI however given patient's symptoms she will be treated. CBC was not suggestive of leukocytosis. CMP was not significant for acute elevation in creatinine. She had no abdominal tenderness to suggest appendicitis or colitis. Given TTP inferior to CVA region, she will be treated for pyelonephritis. She will follow-up outpatient with PCP for re-evaluation. - Results/Orders Results/Orders: 05/17/19 13:10 Urine Culture Stat Laboratory Results - last 24 hr 05/17/19 05/17/19 05/17/19 11:37 13:25 13:25 WBC 5.8 RBC 3.64 L Hgb 10.8 L Hct 32.5 L MCV 89.3 MCH 29.6 MCHC 33.1 RDW 14.5 Plt Count 276 MPV 8.1 Absolute Neuts (auto) 3.50 Absolute Lymphs (auto) 1.70 Absolute Monos (auto) 0.50 Absolute Eos (auto) 0.20 Absolute Basos (auto) 0.00 Neutrophils % 59.5 Lymphocytes % 29.0 Monocytes % 8.0 Eosinophils % 2.7 Basophils % 0.8 Sodium 133 L Potassium 4.2 Chloride 101 Carbon Dioxide 23 Anion Gap 13.2 BUN 32 H Creatinine 1.25 BUN/Creatinine Ratio 25.6 H Random Glucose 125 H Serum Osmolality 274.8 L Calcium 8.5 Total Bilirubin 0.6 AST 20 ALT 17 Alkaline Phosphatase 68 Serum Total Protein 6.6 Albumin 3.4 Globulin 3.2 Albumin/Globulin Ratio 1.1 Urine Color Yellow Urine Appearance Clear Urine pH 5.5 Ur Specific [place] 1.015 Urine Protein Negative Urine Glucose (UA) Negative Urine Ketones Negative Urine Blood Negative Urine Nitrite Negative Urine Bilirubin Negative Urine Urobilinogen 0.2 Ur Leukocyte Esterase Negative Urine RBC 0 Urine WBC 0 Ur Epithelial Cells 5-10 Urine Bacteria Rare Departure - Departure Clinical Impression: Pyelonephritis Time of Disposition: 13:55 Disposition: Discharge to Home or Self Care Condition: Good Departure Forms: ED Discharge - Pt. Copy, Patient Portal Self Enrollment Instructions: DI for Kidney Infection Diet: resume usual diet Activity: increase activity as tolerated Referrals: WILLARD JIMENEZ [Primary Care Provider] - 1-2 Weeks Prescriptions: Cephalexin Monohydrate [Keflex] 500 mg PO QID 14 Days #56 cap Home Medications: Ambulatory Orders RX: Acyclovir [Zovirax] 400 mg PO BID 02/23/17 RX: Aspirin 81 mg PO QD 02/23/17 RX: Atenolol [Tenormin] 50 mg PO DAILY 02/23/17 RX: Insulin Glargine [Lantus Solostar] 100 unit SC DAILY 02/23/17 RX: Isosorbide Mononitrate [Isosorbide Mononitrate ER] 30 mg PO DAILY 02/23/17 RX: Rosuvastatin Calcium [Crestor] 40 mg PO BEDTIME 02/23/17 RX: Citalopram Hydrobromide [Citalopram] 40 mg PO DAILY 08/11/18 RX: Insulin Glargine 100U/ml [Lantus] 80 unit SUBCU BEDTIME 08/11/18 RX: Millerton-3 Fatty Acids [[place] 3 500 500 mg] 1 cap PO DAILY 08/11/18 RX: Ticagrelor [Brilinta] 90 mg PO BID 08/11/18 RX: DULoxetine HCL [Cymbalta] 30 mg PO DAILY 05/03/19 RX: Flaxseed (Linseed) [Flaxseed Oil] 1,000 mg PO DAILY 05/03/19 RX: Human Insulin Aspart [Novolog] 0 unit SC AC PRN 05/03/19 RX: Pantoprazole Sodium 40 mg PO DAILY 05/03/19 RX: Telmisartan 40 mg PO DAILY 05/03/19 RX: Gabapentin [Neurontin] 300 mg PO 0900,1500 #0 05/04/19 RX: Gabapentin [Neurontin] 600 mg PO BEDTIME #60 cap 05/04/19 RX: Zolpidem Tartrate [Ambien] 5 mg PO BEDTIME PRN #20 tab 05/04/19 Cephalexin Monohydrate [Keflex] 500 mg PO QID 14 Days #56 cap 05/17/19 Comments: Jose Carlos Martniez #[id number]
[2019-05-17 14:25] VITALS: BP 111/59; TEMP 97.3; O2SAT 95
== END 2019-05-17 14:12 | disposition home or self-care (01) ==
LOC: ER 11:12
DX: N12 Tubulo-interstitial nephritis, not specified as acute or chronic (principal); E11.9 Type 2 diabetes mellitus without complications; K21.9 Gastro-esophageal reflux disease without esophagitis; I10 Essential (primary) hypertension; I25.2 Old myocardial infarction; E78.5 Hyperlipidemia, unspecified; Z85.42 Personal history of malignant neoplasm of other parts of uterus; Z87.891 Personal history of nicotine dependence; Z95.5 Presence of coronary angioplasty implant and graft; Z79.84 Long term (current) use of oral hypoglycemic drugs; Z79.899 Other long term (current) drug therapy; Z79.82 Long term (current) use of aspirin; Z88.8 Allergy status to other drugs, medicaments and biological substances; Z88.1 Allergy status to other antibiotic agents; Z88.2 Allergy status to sulfonamides; Z87.440 Personal history of urinary (tract) infections

== ENCOUNTER → 2019-07-31 | Outpatient (CLI) | payer BC, OTHER ==
--- NOTE | 2019-08-01 12:19 | MRI ---
EXAM DESCRIPTION: Lumbar Spine w/o Contrast : Magnetic Resonance Imaging. CLINICAL HISTORY: RADICULOPATHY LUMBAR REGION COMPARISON: LUMBAR TECHNIQUE: Multiplanar, multiple standard sequences, non contrast MRI, lumbar spine. FINDINGS: L5-S1: The disc is well visualized on axial T2 series 501, image 3. Moderate loss of disc space more right of midline. Moderate endplate reactive changes more to the right of midline. Also anterior. 4 mm grade 1 retrolisthesis. Posterior midline herniation of the disc almost 10 mm with 6 mm inferior extrusion impressing on the ventral thecal sac and also partially effacing the left subarticular recess abutting the descending left S1 nerve. Hyperintense T2 annular fissure in the herniation. There may be minimally more protrusion and extrusion since the prior study. Degree of left S1 encroachment is unchanged. Degenerative hypertrophy of the facet joints and flavum ligaments, more on the right. Borderline right foraminal narrowing no change from the prior study and moderate to severe left foraminal narrowing. L4-L5: Disc desiccation with disc space maintained. 2 mm grade 1 anterolisthesis. Marked degenerative hypertrophy of the posterior elements with narrowing of the posterior canal. AP canal diameter 8.5 mm. Effacement of the left subarticular recess abutting the left L5 nerve. Progressed since the prior study. Moderate to severe right foraminal narrowing with left foraminal stenosis. Stable since the prior study. L3-L4: Disc desiccation with disc space maintained. Trace retrolisthesis. Degenerative hypertrophy of the posterior elements with narrowing of the posterior canal. AP canal diameter 11 mm. Mild right foraminal narrowing and mild to moderate left foraminal narrowing. No change from the prior study. L2-L3: disc normal signal with disc space maintained. Trace retrolisthesis. Hypertrophic posterior elements narrowing the posterior canal. Mild canal narrowing. Mild bilateral foraminal narrowing. Stable since the prior study. L1-L2: Disc, disc space, canal, posterior elements, and foramina unremarkable. Stable T12-L1: Disc, disc space, canal, posterior elements, and foramina are unremarkable. Conus terminates just below the disc space. No change. No significant curvature abnormalities. Spondylolisthesis as noted. Paravertebral soft tissues unremarkable. Distal cord normal signal and caliber. Normal marrow signal in the remaining vertebral bodies and the posterior elements. Vertebral bodies are not compressed at any level. IMPRESSION: 1. Diffuse spondylosis L5-S1 with grade 1 retrolisthesis. Herniated disc with inferior extrusion may be slight progression since the prior study. Canal and foraminal narrowing/stenosis is unchanged from the prior study. 2. Mild to moderate multifactorial central canal stenosis L4-L5. Effacement of the left subarticular recess abutting the left L5 nerve as progressed since the prior study. Stable left foraminal stenosis since the prior study. 3. Moderate multifactorial canal narrowing L3-L4. Moderate left foraminal narrowing. No change from the prior study. Electronically signed by: Winston Bro MD 08/01/2019 12:17 PM [facility]
== END ==
LOC: MRI 10:45
PROVIDERS: ATTEND Emergency Medicine
DX: M48.062 Spinal stenosis, lumbar region with neurogenic claudication (principal); M47.27 Other spondylosis with radiculopathy, lumbosacral region; M43.17 Spondylolisthesis, lumbosacral region; M51.17 Intervertebral disc disorders with radiculopathy, lumbosacral region

== ENCOUNTER 2019-08-13 19:00 | Emergency (ER) | payer BC, OTHER ==
[2019-08-13 19:18] VITALS: BP 173/64; TEMP 98.6; O2SAT 98
[2019-08-13] MEDS ORDERED: MORPHINE SULFATE INJ 10 MG/ML VIAL IM ONE (19:30)
[2019-08-13] MEDS ORDERED: PROMETHAZINE HCL INJ 25 MG/ML VIAL IM ONE (19:30)
--- NOTE | 2019-08-13 19:33 | ED.PDOC ---
History of Present Illness - General Chief Complaint: Upper Extremity Injury Stated Complaint: right shoulder and arm pain Time Seen by Provider: 08/13/19 19:24 Source: patient Exam Limitations: no limitations - History of Present Illness Initial Comments: Pt says she has had progressive right shoulder pain since this morning. No neck pain, no DILL's. No CP, SOB, N/V, diaphoresis. Pt denies any recent injury, and no history of known shoulder issues. Pt says only exacerbating factor is movement, and only improving factor is immobilization. Occurred: this morning Pain - Upper Extremity: moderate: Shoulder, right Method of Injury: unknown Improving Factors: immobilization Worsening Factors: movement Allergies/Adverse Reactions: Allergies Metformin Allergy (Intermediate, Verified 05/03/19 14:21) Other Causes severe migraines Cephalexin [From Keflex] Allergy (Verified 05/03/19 14:21) Vomitting Kiwi Extract Allergy (Verified 05/03/19 14:56) Headache Sulfamethoxazole w/Trimethoprim [From Bactrim] Allergy (Verified 05/03/19 14:21) Vomitting Home Medications: Ambulatory Orders Acyclovir [Zovirax] 400 mg PO BID 02/23/17 Aspirin 81 mg PO QD 02/23/17 Atenolol [Tenormin] 50 mg PO DAILY 02/23/17 Insulin Glargine [Lantus Solostar] 100 unit SC DAILY 02/23/17 Isosorbide Mononitrate [Isosorbide Mononitrate ER] 30 mg PO DAILY 02/23/17 Rosuvastatin Calcium [Crestor] 40 mg PO BEDTIME 02/23/17 Citalopram Hydrobromide [Citalopram] 40 mg PO DAILY 08/11/18 Insulin Glargine 100U/ml [Lantus] 80 unit SUBCU BEDTIME 08/11/18 Osborn-3 Fatty Acids [Osborn 3 500 500 mg] 1 cap PO DAILY 08/11/18 Ticagrelor [Brilinta] 90 mg PO BID 08/11/18 DULoxetine HCL [Cymbalta] 30 mg PO DAILY 05/03/19 Flaxseed (Linseed) [Flaxseed Oil] 1,000 mg PO DAILY 05/03/19 Human Insulin Aspart [Novolog] 0 unit SC AC PRN 05/03/19 Pantoprazole Sodium 40 mg PO DAILY 05/03/19 Telmisartan 40 mg PO DAILY 05/03/19 Gabapentin [Neurontin] 300 mg PO 0900,1500 #0 05/04/19 Gabapentin [Neurontin] 600 mg PO BEDTIME #60 cap 05/04/19 Zolpidem Tartrate [Ambien] 5 mg PO BEDTIME PRN #20 tab 05/04/19 Cephalexin Monohydrate [Keflex] 500 mg PO QID 14 Days #56 cap 05/17/19 Acetaminophen W/ Codeine [Tylenol/Codeine #4 300-60 mg] 1 ea PO Q4HR #20 tab 08/13/19 Review of Systems - Review of Systems Constitutional: States: no symptoms reported EENTM: States: no symptoms reported Respiratory: States: no symptoms reported. Denies: cough, short of breath, wheezing Cardiology: States: no symptoms reported. Denies: chest pain, edema, palpitations, syncope Gastrointestinal/Abdominal: States: no symptoms reported Genitourinary: States: no symptoms reported Musculoskeletal: States: joint pain, muscle pain. Denies: back pain, joint swelling, muscle stiffness, neck pain Skin: States: no symptoms reported. Denies: change in color, lesions Neurological: States: no symptoms reported. Denies: numbness, weakness Past Medical History (General) - Patient Medical History Hx Seizures: No Hx Stroke: No Hx Dementia: No Hx Asthma: No Hx of COPD: No Hx Cardiac Disorders: Yes - [place] x 4, cardiac stents; dyslipidemia. Pt reports 1st [place] at 48 Hx Congestive Heart Failure: No Hx Pacemaker: No Hx Hypertension: Yes Hx Thyroid Disease: No Hx Diabetes: Yes Hx Gastroesophageal Reflux: Yes Hx Renal Disease: Yes - Reports decreased kidney function Hx Cancer: Yes - Uterine at 33 y/o with total hysterectomy except for cervix Hx of HIV: No Hx Hepatitis C: No Hx MRSA: No Surgical History: Hysterectomy - Vaccination History Hx Tetanus, Diphtheria Vaccination: Yes Hx Influenza Vaccination: No Hx Pneumococcal Vaccination: Yes Immunizations Up to Date: Yes - Social History Hx Tobacco Use: No Hx Chewing Tobacco Use: No Hx Alcohol Use: No Hx Substance Use: No Hx Substance Use Treatment: No Hx Depression: No Feels Threatened In Home Enviroment: No Feels Threatened In a Relationship: No Hx Physical Abuse: No Hx Emotional Abuse: No Hx Suspected Abuse: No - Activities of Daily Living Hospice Agency (if applicable):: None - Female History Patient is a Female of Child Bearing Age (10 -59 yrs old): No Family Medical History - Family History Mother Family History: Unknown Living Status: Still Living Hx Family Diabetes: Yes - mom Hx Family Cancer: Yes - Mother with hx of breast cancer. Physical Exam - Physical Exam General Appearance: No apparent distress Neck: non-tender Cardiovascular/Respiratory: regular rate, rhythm, normal peripheral pulses Abdominal Exam: non-tender Shoulder Exam: limited ROM, pain, soft tissue tenderness Elbow/Forearm Exam: normal inspection Wrist Exam: normal inspection Hand Exam: normal inspection Neuro/Tendon: normal sensation, normal motor functions, normal tendon functions Mental Status: alert, oriented x 3 Skin Exam: normal color Progress - EKG/XRAY/CT XRAY: Right shoulder Xray Comments: No fracture or dislocation. No significant DJD. Departure - Departure Clinical Impression: Sprain and strain of shoulder and upper arm Time of Disposition: 19:52 Disposition: Discharge to Home or Self Care Condition: Good Departure Forms: ED Discharge - Pt. Copy, Patient Portal Self Enrollment Instructions: DI for Arm Pain, DI for Frozen Shoulder Activity: increase activity as tolerated Referrals: WILLARD JIMENEZ [Primary Care Provider] - 1-2 Weeks Prescriptions: Acetaminophen W/ Codeine [Tylenol/Codeine #4 300-60 mg] 1 ea PO Q4HR #20 tab Home Medications: Ambulatory Orders Acyclovir [Zovirax] 400 mg PO BID 02/23/17 Aspirin 81 mg PO QD 02/23/17 Atenolol [Tenormin] 50 mg PO DAILY 02/23/17 Insulin Glargine [Lantus Solostar] 100 unit SC DAILY 02/23/17 Isosorbide Mononitrate [Isosorbide Mononitrate ER] 30 mg PO DAILY 02/23/17 Rosuvastatin Calcium [Crestor] 40 mg PO BEDTIME 02/23/17 Citalopram Hydrobromide [Citalopram] 40 mg PO DAILY 08/11/18 Insulin Glargine 100U/ml [Lantus] 80 unit SUBCU BEDTIME 08/11/18 Osborn-3 Fatty Acids [Osborn 3 500 500 mg] 1 cap PO DAILY 08/11/18 Ticagrelor [Brilinta] 90 mg PO BID 08/11/18 DULoxetine HCL [Cymbalta] 30 mg PO DAILY 05/03/19 Flaxseed (Linseed) [Flaxseed Oil] 1,000 mg PO DAILY 05/03/19 Human Insulin Aspart [Novolog] 0 unit SC AC PRN 05/03/19 Pantoprazole Sodium 40 mg PO DAILY 05/03/19 Telmisartan 40 mg PO DAILY 05/03/19 Gabapentin [Neurontin] 300 mg PO 0900,1500 #0 05/04/19 Gabapentin [Neurontin] 600 mg PO BEDTIME #60 cap 05/04/19 Zolpidem Tartrate [Ambien] 5 mg PO BEDTIME PRN #20 tab 05/04/19 Cephalexin Monohydrate [Keflex] 500 mg PO QID 14 Days #56 cap 05/17/19 Acetaminophen W/ Codeine [Tylenol/Codeine #4 300-60 mg] 1 ea PO Q4HR #20 tab 08/13/19 Additional Instructions: Please call your primary physician tomorrow to arrange follow up within 7-10 days. Please do not immobilize in sling. Use ice packs as needed for pain relief.
--- NOTE | 2019-08-13 20:27 | RAD ---
EXAM DESCRIPTION: XR Shoulder, Right 2 or More Views CLINICAL HISTORY: 59 years Female right shoulder pain, decreased ROM TECHNIQUE: Two views of the right shoulder are provided. COMPARISON: No prior exams provided for comparison. FINDINGS: There is no acute fracture or dislocation. The glenohumeral and acromioclavicular joints are normal. There are no aggressive osseous lesions. Evidence of prior granulomatous disease in the right lung. IMPRESSION: No acute findings in the right shoulder. Electronically signed by: Rebekah Robertson MD 08/13/2019 8:25 PM [facility]
== END 2019-08-13 20:03 | disposition home or self-care (01) ==
LOC: ER 19:00
DX: S43.401A Unspecified sprain of right shoulder joint, initial encounter (principal); I25.2 Old myocardial infarction; E78.5 Hyperlipidemia, unspecified; I10 Essential (primary) hypertension; E11.9 Type 2 diabetes mellitus without complications; K21.9 Gastro-esophageal reflux disease without esophagitis; N28.9 Disorder of kidney and ureter, unspecified; Z95.5 Presence of coronary angioplasty implant and graft; Z85.42 Personal history of malignant neoplasm of other parts of uterus; Z79.899 Other long term (current) drug therapy; Z79.4 Long term (current) use of insulin; Z79.82 Long term (current) use of aspirin; Z88.8 Allergy status to other drugs, medicaments and biological substances; X58.XXXA Exposure to other specified factors, initial encounter; Y92.9 Unspecified place or not applicable
CPT/HCPCS: 73030; J2270; J2550

== ENCOUNTER → 2019-08-18 | Outpatient (CLI) | payer BC, OTHER ==
--- NOTE | 2019-08-18 22:00 | RAD ---
EXAM DESCRIPTION: Cervical Spine,5 Views CLINICAL HISTORY: 59 years Female, RADICULOPATHY CERVICAL REGION COMPARISON: None. TECHNIQUE: 5 view radiograph of the cervical spine. IMPRESSION: Intact on the odontoid on open-mouth view normal anatomic alignment of the lateral masses C1 through C7 vertebrae are visualized. No acute displaced fracture or compression deformity. There is straightening of the cervical spine with very subtle cervical kyphosis centered at C5. Normal AP alignment. Minimal levocurvature centered at C4-C5 without lateral translation. Mild to moderate uncovertebral spurring within the upper to mid cervical spine. Disc space heights are maintained. There appears to be mild to moderate neural foraminal stenosis at right C3-C4 as seen on the right oblique view. MRI cervical spine may be obtained to further evaluate this finding. No prevertebral soft tissue thickening. Visualized lungs unremarkable. Electronically signed by: Missael Hutton MD 08/18/2019 9:59 PM [facility]
== END ==
LOC: RAD 14:27
PROVIDERS: ATTEND Nurse Practitioner Family
DX: M54.12 Radiculopathy, cervical region (principal); M48.02 Spinal stenosis, cervical region; M40.202 Unspecified kyphosis, cervical region; M25.78 Osteophyte, vertebrae

== ENCOUNTER → 2019-10-06 | Outpatient (CLI) | payer MEDICARE, OTHER ==
--- NOTE | 2019-10-08 10:17 | CT ---
Procedure: CT LUNG SCREENING Exam Date: 10/06/2019 Ordering Provider: WILLARD JIMENEZ Clinical Indication: PERSONAL HISTORY OF NICOTINE DEPENDENCE . Smoking cessation x 7 years. 62 pack years. This patient meets eligibility criteria for low-dose CT lung cancer screening. Comparison: Chest radiograph April 2019. Technique: Using a multislice scanner, sequential helical axial imaging was obtained in the thorax, 2.5 mm thickness, 2.5 mm separation, from the level of the thoracic inlet through the lung bases without IV contrast. A low dose protocol was utilized for BMI greater than than 30: BMI: 38.2. CTDI: 2.93 mGy. 120. kVp. 45 mA. DLP 110 mGy-cm. 2D sagittal and coronal reconstructed images, 6.0 mm thickness, were obtained. This exam was performed according to our departmental dose optimization program which includes use of automated exposure control, adjustment of the mA and/or kV according to patient size and/or use of iterative reconstruction technique. Nodule measurements under 10 mm are given as mean value of 3 axes diameters. FINDINGS: Lungs and large airways: 5 mm subpleural calcified nodule lateral right upper lobe. Smaller calcified granulomas bilaterally. Bilateral scattered small blebs upper and lower lung moses. No abnormal nodules and no masses. No focal infiltrates. Pleura and space: Small nodule lateral abutting the left upper lobe. Otherwise negative. Mediastinum and norma: evaluation limited by low dose technique and lack of IV contrast. Small lymph nodes. No dominant soft tissue masses. Heart and great vessels: Coronary artery calcifications and possible stents. Atherosclerotic calcifications in several brachiocephalic vessels and the thoracic aorta. Chest wall, lower neck, axillae: Evaluation also limited by same factors as described above. Large patient body habitus. Upper abdomen: Evaluation limited by low-dose technique. Left adrenal gland mass slightly larger than on the prior study which may be due to low-dose technique. Density is +4. No free air or free fluid in the included peritoneal cavity. Gallbladder visualized. Atherosclerotic arterial calcifications. Osseous structures: Evaluation limited by low dose MIP technique. Spondylosis at multiple levels midthoracic spine. Minimal joint arthrosis. No destructive or blastic lesions. IMPRESSION: 1. Mild emphysematous blebs bilaterally with bilateral calcified nodules.. [facility] Best Practice Recommendations: please see below for Lung RADS category and FOLLOW-UP.* *Lung RADS category Category 1 - No nodule or definitely benign nodules (probability of malignancy less than 1%). Follow-up: Continue annual screening with Low Dose Chest CT in 12 months. Electronically signed by: Winston Bro MD 10/08/2019 10:16 AM [facility]
== END ==
LOC: CT 14:00
PROVIDERS: ATTEND Emergency Medicine
DX: Z87.891 Personal history of nicotine dependence (principal); J43.9 Emphysema, unspecified; R91.1 Solitary pulmonary nodule

== ENCOUNTER 2019-11-12 09:23 | Emergency (ER) | payer MEDICARE, MEDICAID ==
[2019-11-12] MEDS ORDERED: DEXAMETHASONE INJ 4 MG/ML VIAL IM ONE (10:10)
[2019-11-12] MEDS ORDERED: KETOROLAC TROMETHAMINE INJ 30 MG/ML VIAL IM ONE (10:10)
--- NOTE | 2019-11-12 11:40 | ED.PDOC ---
History of Present Illness - General Chief Complaint: Back Pain or Injury Stated Complaint: back pain Time Seen by Provider: 11/12/19 10:09 Source: patient, RN notes reviewed, Vital Signs reviewed Exam Limitations: no limitations - History of Present Illness Initial Comments: Patient is a 59-year-old white female who presents with complaints of low back pain status post fall yesterday. She also complains of pain and numbness radiating down the left buttock and into the left posterior leg. Patient denies any saddle anesthesia. She denies any weakness. The pain is stabbing and tingling in nature. Pain is worse with bending over. Improved by laying flat on her back with her knees bent. Pain started yesterday. It is constant. It is intermittent in nature. Timing/Duration: 24 hours Severity: moderate Improving Factors: other - Lying flat on her back. Worsening Factors: other - Bending over and movement. Associated Symptoms: denies symptoms Allergies/Adverse Reactions: Allergies Metformin Allergy (Intermediate, Verified 05/03/19 14:21) Other Causes severe migraines Kiwi Extract Allergy (Verified 05/03/19 14:56) Headache Sulfamethoxazole w/Trimethoprim [From Bactrim] Allergy (Verified 05/03/19 14:21) Vomitting Home Medications: Ambulatory Orders Acyclovir [Zovirax] 400 mg PO BID 02/23/17 Aspirin 81 mg PO QD 02/23/17 Atenolol [Tenormin] 50 mg PO DAILY 02/23/17 Insulin Glargine [Lantus Solostar] 110 unit SC DAILY 02/23/17 Isosorbide Mononitrate [Isosorbide Mononitrate ER] 30 mg PO DAILY 02/23/17 Rosuvastatin Calcium [Crestor] 40 mg PO BEDTIME 02/23/17 Citalopram Hydrobromide [Citalopram] 40 mg PO DAILY 08/11/18 Insulin Glargine 100U/ml [Lantus] 90 unit SUBCU BEDTIME 08/11/18 Arcadia-3 Fatty Acids [Arcadia 3 500 500 mg] 1 cap PO DAILY 08/11/18 DULoxetine HCL [Cymbalta] 30 mg PO DAILY 05/03/19 Flaxseed (Linseed) [Flaxseed Oil] 1,000 mg PO DAILY 05/03/19 Human Insulin Aspart [Novolog] 0 unit SC AC PRN 05/03/19 Pantoprazole Sodium 40 mg PO DAILY 05/03/19 Gabapentin [Neurontin] 300 mg PO 0900,1500 #0 05/04/19 Gabapentin [Neurontin] 600 mg PO BEDTIME #60 cap 05/04/19 Acetaminophen W/ Codeine [Tylenol/Codeine #4 300-60 mg] 1 ea PO Q4HR #20 tab 08/13/19 Albuterol Inhaler [Ventolin Hfa Inhaler] 1 puff INH PRN 11/12/19 Cefdinir 300 mg PO BID #10 capsule 11/12/19 Fluconazole [Diflucan] 150 mg PO DAILY #3 tab 11/12/19 Methylprednisolone [Medrol Dose Hans] 4 mg PO DAILY 6 Days #21 tab 11/12/19 Oxybutynin Chloride 5 mg PO BID 11/12/19 Review of Systems - Review of Systems Constitutional: States: no symptoms reported. Denies: chills, fever, weakness EENTM: States: no symptoms reported. Denies: blurred vision, double vision Respiratory: States: no symptoms reported. Denies: cough, short of breath, stridor Cardiology: States: no symptoms reported. Denies: chest pain, palpitations, syncope Gastrointestinal/Abdominal: States: abdominal pain - Lower abdominal at her suprapubic region.. Denies: nausea, vomiting Genitourinary: States: dysuria, frequency Musculoskeletal: States: back pain Skin: States: no symptoms reported Neurological: States: no symptoms reported Endocrine: States: no symptoms reported Hematologic/Lymphatic: States: no symptoms reported All other Systems: Reviewed and Negative Past Medical History (General) - Patient Medical History Hx Seizures: No Hx Stroke: No Hx Dementia: No Hx Asthma: No Hx of COPD: Yes Hx Cardiac Disorders: Yes Hx Congestive Heart Failure: No Hx Pacemaker: No Hx Hypertension: Yes Hx Thyroid Disease: No Hx Diabetes: Yes Hx Gastroesophageal Reflux: Yes Hx Renal Disease: Yes Hx Cancer: Yes - Uterine at 33 y/o with total hysterectomy except for cervix Hx of HIV: No Hx Hepatitis C: No Hx MRSA: No Surgical History: Hysterectomy - Vaccination History Hx Tetanus, Diphtheria Vaccination: Yes Hx Influenza Vaccination: Yes Hx Pneumococcal Vaccination: Yes - Social History Hx Tobacco Use: Yes Hx Chewing Tobacco Use: No Hx Alcohol Use: No Hx Substance Use: No Hx Substance Use Treatment: No Hx Depression: No Hx Physical Abuse: No Hx Emotional Abuse: No Hx Suspected Abuse: No Family Medical History - Family History Mother Family History: Unknown Living Status: Still Living Hx Family Diabetes: Yes - mom Hx Family Cancer: Yes - Mother with hx of breast cancer. Physical Exam - Physical Exam General Appearance: Alert, Anxious, Obvious distress, Well Developed, Well Groomed, Well Hydrated, Well Nourished Eye Exam: bilateral normal Ears, Nose, Throat: hearing grossly normal, normal pharynx Neck: non-tender, full range of motion, supple, normal inspection Respiratory: chest non-tender, lungs clear, normal breath sounds, no respiratory distress Cardiovascular/Chest: normal peripheral pulses, regular rate, rhythm, no edema, no gallop, no JVD, no murmur Peripheral Pulses: radial,right: 2+, radial,left: 2+ Gastrointestinal/Abdominal: normal bowel sounds, soft, tenderness - Suprapubic Back Exam: no CVA tenderness, no vertebral tenderness, vertebral tenderness - Left lateral lumbar paraspinal muscle spasm with tenderness palpation. She has tenderness to palpation over the sciatic notch with radiation of the pain and numbness down the left posterior leg. 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 11/12/19 11:43 Patient's pain is improved after IM Toradol and IM Decadron. Plan on discharge home with a prescription for Medrol Dosepak. I have a long discussion with the patient regarding her diabetes and the use of steroids. Patient is insistent upon further steroid therapy for a few days. I have discussed with the patient need to closely monitor sugars, altered diet and contact her PCP if her sugars spike too high. Patient also with a possibility of a UTI and shows budding yeast in urine. Plan on treatment with antibiotics and Diflucan.She voices understanding and agreement with the plan of care. Benjy Green M.D. #[id number] 11/12/19 11:46 - Results/Orders Results/Orders: 11/12/19 10:00 Urine Culture Stat Laboratory Results - last 24 hr 11/12/19 10:00 Urine Color Yellow Urine Appearance Cloudy Urine pH 5.0 Ur Specific [place] >= 1.030 Urine Protein 30 Urine Glucose (UA) 250 H Urine Ketones Negative Urine Blood Negative Urine Nitrite Negative Urine Bilirubin Negative Urine Urobilinogen 0.2 Ur Leukocyte Esterase Small H Urine RBC 1-3 Urine WBC 10-20 H Ur Epithelial Cells 5-10 Amorphous Sediment 1+ Urine Bacteria 1+ Urine Yeast 1+ budding H Departure - Departure Clinical Impression: Yeast UTI Sciatica Qualifiers: Laterality: left Qualified Code(s): M54.32 - Sciatica, left side Back pain Qualifiers: Back pain location: low back pain Chronicity: unspecified Back pain laterality: left Sciatica presence: with sciatica Sciatica laterality: sciatica of left side Qualified Code(s): M54.42 - Lumbago with sciatica, left side Time of Disposition: 11:51 Disposition: Discharge to Home or Self Care Condition: Good Departure Forms: ED Discharge - Pt. Copy, Patient Portal Self Enrollment Instructions: DI for Back Pain With Sciatica, Urinary Tract Infection, Adult (DC) Diet: diabetic diet Activity: increase activity as tolerated Referrals: WILLARD JIMENEZ [Primary Care Provider] - 1 Week Prescriptions: Cefdinir 300 mg PO BID #10 capsule Fluconazole [Diflucan] 150 mg PO DAILY #3 tab Methylprednisolone [Medrol Dose Hans] 4 mg PO DAILY 6 Days #21 tab Home Medications: Ambulatory Orders Acyclovir [Zovirax] 400 mg PO BID 02/23/17 Aspirin 81 mg PO QD 02/23/17 Atenolol [Tenormin] 50 mg PO DAILY 02/23/17 Insulin Glargine [Lantus Solostar] 110 unit SC DAILY 02/23/17 Isosorbide Mononitrate [Isosorbide Mononitrate ER] 30 mg PO DAILY 02/23/17 Rosuvastatin Calcium [Crestor] 40 mg PO BEDTIME 02/23/17 Citalopram Hydrobromide [Citalopram] 40 mg PO DAILY 08/11/18 Insulin Glargine 100U/ml [Lantus] 90 unit SUBCU BEDTIME 08/11/18 Arcadia-3 Fatty Acids [Arcadia 3 500 500 mg] 1 cap PO DAILY 08/11/18 DULoxetine HCL [Cymbalta] 30 mg PO DAILY 05/03/19 Flaxseed (Linseed) [Flaxseed Oil] 1,000 mg PO DAILY 05/03/19 Human Insulin Aspart [Novolog] 0 unit SC AC PRN 05/03/19 Pantoprazole Sodium 40 mg PO DAILY 05/03/19 Gabapentin [Neurontin] 300 mg PO 0900,1500 #0 05/04/19 Gabapentin [Neurontin] 600 mg PO BEDTIME #60 cap 05/04/19 Acetaminophen W/ Codeine [Tylenol/Codeine #4 300-60 mg] 1 ea PO Q4HR #20 tab 08/13/19 Albuterol Inhaler [Ventolin Hfa Inhaler] 1 puff INH PRN 11/12/19 Cefdinir 300 mg PO BID #10 capsule 11/12/19 Fluconazole [Diflucan] 150 mg PO DAILY #3 tab 11/12/19 Methylprednisolone [Medrol Dose Hans] 4 mg PO DAILY 6 Days #21 tab 11/12/19 Oxybutynin Chloride 5 mg PO BID 11/12/19
[2019-11-12 12:10] VITALS: BP 114/55; TEMP 97.7; O2SAT 96
== END 2019-11-12 12:00 | disposition home or self-care (01) ==
LOC: ER 09:23
DX: M54.42 Lumbago with sciatica, left side (principal); B37.49 Other urogenital candidiasis; J44.9 Chronic obstructive pulmonary disease, unspecified; I51.9 Heart disease, unspecified; N18.9 Chronic kidney disease, unspecified; E11.22 Type 2 diabetes mellitus with diabetic chronic kidney disease; I12.9 Hypertensive chronic kidney disease with stage 1 through stage 4 chronic kidney disease, or unspecified chronic kidney disease; K21.9 Gastro-esophageal reflux disease without esophagitis; Z85.42 Personal history of malignant neoplasm of other parts of uterus; Z87.891 Personal history of nicotine dependence; Z79.4 Long term (current) use of insulin; Z79.82 Long term (current) use of aspirin; Z79.899 Other long term (current) drug therapy
CPT/HCPCS: 81001; 87086; J1100; J1885

== ENCOUNTER → 2020-04-27 | Outpatient (CLI) | payer MEDICARE, OTHER ==
--- NOTE | 2020-04-28 16:03 | MAM ---
EXAM DESCRIPTION: 3D Screening BILATERAL : Digital Mammography. CLINICAL HISTORY: 60 years Female ANNUAL SCREENING . No complaints. Personal history of ovarian cancer. Remote family history of breast cancer. Menarche age 11. Childbirth age 22. Hysterectomy with ovarian cancer diagnosis age 36. Currently on HRT. Lifetime risk of developing breast cancer (Tyrer-Cuzick model)(%): 7.4. COMPARISON: Bilateral screening digital breast tomosynthesis January 2019 and January 2018. TECHNIQUE: Bilateral CC and MLO projection full-field images, digital tomosynthesis mammographic technique. Bilateral digital 2-D full-field MLO images. CAD available for 2-D images. FINDINGS: The breast parenchymal density pattern is: Heterogeneously dense breast tissue, which may obscure small masses. No skin thickening or nipple retraction. Solitary microcalcifications. Bilateral fibroglandular tissues are increasing in density compared to 2018. Intramammary lymph nodes. No new focal, stellate mass or density, focal asymmetry , and no suspicious microcalcifications bilaterally. IMPRESSION: Benign exam. BIRAD CATEGORY: 2 BENIGN FINDINGS. RECOMMENDATIONS: FOLLOW UP: Routine digital bilateral mammographic screening, one year interval from April 2020. Written communication explaining the IMPRESSION and follow-up, will be mailed to the patient and referring health care provider. According to the [employer], yearly mammograms are recommended starting at age 40 and continuing as long as a woman is in good health. Any breast change noted on a breast self-exam should be reported promptly to the patient's healthcare provider. Breast MRI is recommended for women with an approximately 20-25% or greater lifetime risk of breast cancer, including women with a strong family history of breast or ovarian cancer and women who have been treated for Hodgkin's disease. A negative mammographic report should not delay tissue diagnosis in patients with significant clinical history or physical findings. Extremely dense breast tissue limits the sensitivity of digital mammography. Electronically signed by: Winston Bro MD 04/28/2020 4:01 PM CDT
== END ==
LOC: MAMMO 11:28
PROVIDERS: ATTEND Emergency Medicine
DX: Z12.31 Encounter for screening mammogram for malignant neoplasm of breast (principal)